=== PATIENT | male | born 1990 | race Caucasian/White ===

== ENCOUNTER 2023-03-11 16:13 | Emergency (ER) | payer OTHER ==
--- NOTE | 2023-03-11 17:00 | ED ---
Psych HPI - General Chief Complaint: Psychiatric Symptoms Stated Complaint: Mental Health, ETOH Time Seen by Provider: 03/11/23 16:20 Source: patient, EMS, RN notes reviewed, old records reviewed Mode of arrival: EMS Limitations: no limitations - History of Present Illness Initial Comments: This is a 32-year-old male to the emergency department for evaluation. Patient states that he had an argument with family prior to arrival patient arrives under petition a family and they do not feel safe in the patient's presence. Patient did have alcohol use today MD Complaint: other (Anger management) Associated Psychiatric Symptoms: homicidal ideation Quality: constant Improves With: none Worsens With: none Context: not taking psychiatric medications, significant life stressor Associated Symptoms: denies other symptoms Treatments Prior to Arrival: placed on mental health hold - Related Data Home Medications Medication Instructions Recorded Confirmed Ibuprofen [Motrin Ib] 200 mg PO Q8H PRN 03/11/23 03/15/23 Melatonin 20 mg PO HS PRN 03/11/23 03/15/23 Naltrexone HCl 50 mg PO DAILY 03/11/23 03/15/23 Propranolol [Inderal] 10 mg PO BID PRN 03/11/23 03/15/23 buPROPion XL [Wellbutrin XL] 300 mg PO DAILY 03/11/23 03/15/23 busPIRone HCL [Buspirone HCl] 10 mg PO TID PRN 03/11/23 03/15/23 Allergies Allergy/AdvReac Type Severity Reaction Status Date / Time No Known Allergies Allergy Verified 03/15/23 21:26 Review of Systems ROS Statement: Those systems with pertinent positive or pertinent negative responses have been documented in the HPI. ROS Other: All systems not noted in ROS Statement are negative. Past Medical History Past Medical History: No Reported History History of Any Multi-Drug Resistant Organisms: None Reported Past Surgical History: Tonsillectomy Past Psychological History: Anxiety, Depression Smoking Status: Current every day smoker Past Alcohol Use History: Abuse Past Drug Use History: Marijuana General Exam Limitations: no limitations General appearance: alert, in no apparent distress Head exam: Present: atraumatic, normocephalic, normal inspection Eye exam: Present: normal appearance, PERRL, EOMI. Absent: scleral icterus, conjunctival injection, periorbital swelling ENT exam: Present: normal exam, mucous membranes moist Neck exam: Present: normal inspection. Absent: tenderness, meningismus, lymphadenopathy Respiratory exam: Present: normal lung sounds bilaterally. Absent: respiratory distress, wheezes, rales, rhonchi, stridor Cardiovascular Exam: Present: regular rate, normal rhythm, normal heart sounds. Absent: systolic murmur, diastolic murmur, rubs, gallop, clicks GI/Abdominal exam: Present: soft, normal bowel sounds. Absent: distended, tenderness, guarding, rebound, rigid Extremities exam: Present: normal inspection, full ROM, normal capillary refill. Absent: tenderness, pedal edema, joint swelling, calf tenderness Back exam: Present: normal inspection Neurological exam: Present: alert, oriented X3, CN II-XII intact Psychiatric exam: Present: normal affect, normal mood Skin exam: Present: warm, dry, intact, normal color. Absent: rash Course Vital Signs 03/11/23 03/11/23 16:14 22:26 Pulse Rate 92 102 H Respiratory 18 19 Rate Blood Pressure 161/108 128/98 O2 Sat by Pulse 98 99 Oximetry - Reevaluation(s) Reevaluation #1: 03/11/23 21:30 Medical record is reviewed Medical Decision Making - Medical Decision Making 32 male seen eval by psychiatry here in the ER, patient can be discharged home Disposition Clinical Impression: Adjustment reaction of adult life, Mood disorder Disposition: HOME SELF-CARE Condition: Fair Is patient prescribed a controlled substance at d/c from ED?: No Referrals: None,Stated [Primary Care Provider] - 1-2 days
[2023-03-11 22:38] VITALS: BP 128/98; PULSE 102; RESP 19
== END 2023-03-11 22:28 | disposition home or self-care (01) ==
LOC: EC 16:13
DX: F39 Unspecified mood [affective] disorder (principal); F43.22 Adjustment disorder with anxiety; F32.A Depression, unspecified; F12.90 Cannabis use, unspecified, uncomplicated; F17.200 Nicotine dependence, unspecified, uncomplicated; Z79.899 Other long term (current) drug therapy
CPT/HCPCS: 82075; 99285

== ENCOUNTER 2023-03-15 15:31 | Inpatient (IN) | payer MEDICAID, OTHER ==
--- NOTE | 2023-03-15 16:39 | ED ---
General Adult HPI - General Chief complaint: Psychiatric Symptoms Stated complaint: Mental Health Time Seen by Provider: 03/15/23 16:12 Source: patient, RN notes reviewed, old records reviewed Mode of arrival: ambulatory Limitations: no limitations - History of Present Illness Initial comments: 32-year-old male for mental health evaluation. Patient had apparently made statements indicating he had 2 visions, where he killed himself and everyone in his family. He is petitioned. He has prior history of bipolar depression. He states he is a daily drinker. No physical complaints. - Related Data Home Medications Medication Instructions Recorded Confirmed Ibuprofen [Motrin Ib] 200 mg PO Q8H PRN 03/11/23 03/11/23 Melatonin 20 mg PO HS PRN 03/11/23 03/11/23 Naltrexone HCl 50 mg PO DAILY 03/11/23 03/11/23 Propranolol [Inderal] 10 mg PO BID PRN 03/11/23 03/11/23 buPROPion XL [Wellbutrin XL] 300 mg PO DAILY 03/11/23 03/11/23 busPIRone HCL [Buspirone HCl] 10 mg PO TID PRN 03/11/23 03/11/23 Allergies Allergy/AdvReac Type Severity Reaction Status Date / Time No Known Allergies Allergy Verified 03/15/23 16:10 Review of Systems ROS Statement: Those systems with pertinent positive or pertinent negative responses have been documented in the HPI. ROS Other: All systems not noted in ROS Statement are negative. Past Medical History Past Medical History: No Reported History, Hypertension History of Any Multi-Drug Resistant Organisms: None Reported Past Surgical History: Tonsillectomy Past Psychological History: Anxiety, Depression Smoking Status: Current every day smoker Past Alcohol Use History: Abuse, Daily Past Drug Use History: Marijuana, Methamphetamine General Exam Limitations: no limitations General appearance: alert, in no apparent distress Head exam: Present: atraumatic, normocephalic Eye exam: Present: normal appearance, PERRL ENT exam: Present: normal exam Neck exam: Present: normal inspection. Absent: tenderness, meningismus Respiratory exam: Present: normal lung sounds bilaterally. Absent: respiratory distress Cardiovascular Exam: Present: regular rate, normal rhythm GI/Abdominal exam: Present: soft. Absent: distended, tenderness Extremities exam: Present: normal inspection Neurological exam: Present: alert, oriented X3. Absent: motor sensory deficit Psychiatric exam: Present: homicidal ideation Skin exam: Present: warm, dry, intact Course Vital Signs 03/15/23 16:05 Temperature 97.9 F Pulse Rate 107 H Respiratory 20 Rate Blood Pressure 158/100 O2 Sat by Pulse 98 Oximetry - Reevaluation(s) Reevaluation #1: 03/15/23 16:37 Clear for EPS Medical Decision Making - Medical Decision Making Was pt. sent in by a medical professional or institution (, PA, ALUMNI COORDINATOR, urgent care, hospital, or fpc...) When possible be specific @ -No Did you speak to anyone other than the patient for history (EMS, parent, family, police, friend...)? What history was obtained from this source @ -No Did you review nursing and triage notes (agree or disagree)? Why? @ -I reviewed and agree with nursing and triage notes Were old charts reviewed (outside hosp., previous admission, EMS record, old EKG, old radiological studies, urgent care reports/EKG's, fpc records)? Report findings @ -No old charts were reviewed Differential Diagnosis (chest pain, altered mental status, abdominal pain women, abdominal pain men, vaginal bleeding, weakness, fever, dyspnea, syncope, headache, dizziness, GI bleed, back pain, seizure, CVA, palpatations, mental health, musculoskeletal)? @ -[Differential Mental Health Depression, anxiety, bipolar, psychosis, schizophrenia, borderline personality, situational depression, adjustment disorder, behavioral disorder, brain tumor, malingering, substance abuse, encephalopathy, medication reaction, dementia, hypothyroidism, degenerative neurologic disorder, lupus.... This is not meant to be all-inclusive list EKG interpreted by me (3pts min.). @ -As above X-rays interpreted by me (1pt min.). @ -None done CT interpreted by me (1pt min.). @ -None done U/S interpreted by me (1pt. min.). @ -None done What testing was considered but not performed or refused? (CT, X-rays, U/S, lab s)? Why? @ -None What meds were considered but not given or refused? Why? @ -None Did you discuss the management of the patient with other professionals (professionals i.e. , PA, ALUMNI COORDINATOR, lab, RT, psych nurse, geriatric social worker, extended insurance clerk, teacher, correctional officer captain, vocational case manager)? Give summary @ -No Was smoking cessation discussed for >3mins.? @ -No Was critical care preformed (if so, how long)? @ -No Were there social determinants of health that impacted care today? How? (Homelessness, low income, unemployed, alcoholism, drug addiction, transportation, low edu. Level, literacy, decrease access to med. care, long term, rehab)? @ -No Was there de-escalation of care discussed even if they declined (Discuss DNR or withdrawal of care, Hospice)? DNR status @ -No What co-morbidities impacted this encounter? (DM, HTN, Smoking, COPD, CAD, Cancer, CVA, ARF, Chemo, Hep., AIDS, mental health diagnosis, sleep apnea, morbid obesity)? @ -None Was patient admitted / discharged? Hospital course, mention meds given and route, prescriptions, significant lab abnormalities, going to OR and other pertinent info. @ Patient evaluated by EPS and will be admitted to this institution for further psychiatric evaluation and treatment. Undiagnosed new problem with uncertain prognosis? @ -No Drug Therapy requiring intensive monitoring for toxicity (Heparin, Nitro, Insulin, Cardizem)? @ -No Were any procedures done? @ -No Diagnosis/symptom? @ -Acute psychosis Acute, or Chronic, or Acute on Chronic? @ -Acute Uncomplicated (without systemic symptoms) or Complicated (systemic symptoms)? @ -default Side effects of treatment? @ -No Exacerbation, Progression, or Severe Exacerbation? @ -No Poses a threat to life or bodily function? How? (Chest pain, [place], [place], pneumonia, PE, COPD, DKA, ARF, appy, cholecystitis, CVA, Diverticulitis, Homicidal, Suicidal, threat to staff... and all critical care pts) @ -No - Lab Data Lab Results 03/15/23 Range/Units 17:29 Urine Opiates Screen Not Detected (NotDetected) Ur Oxycodone Screen Not Detected (NotDetected) Urine Methadone Screen Not Detected (NotDetected) Ur Propoxyphene Screen Not Detected (NotDetected) Ur Barbiturates Screen Not Detected (NotDetected) U Tricyclic Antidepress Not Detected (NotDetected) Ur Phencyclidine Scrn Not Detected (NotDetected) Ur Amphetamines Screen Not Detected (NotDetected) U Methamphetamines Scrn Not Detected (NotDetected) U Benzodiazepines Scrn Detected H (NotDetected) Urine Cocaine Screen Not Detected (NotDetected) U Marijuana (THC) Screen Detected H (NotDetected) Disposition Clinical Impression: Acute psychosis, Suicidal ideation Disposition: ADMITTED IP TO THIS [facility] Condition: Stable Is patient prescribed a controlled substance at d/c from ED?: No Referrals: Parvez Conway MD [Primary Care Provider] - 1-2 days Time of Disposition: 21:06
[2023-03-15 18:26] LABS: Amphetamine Screen,Urine Not Detected (NotDetected); Barbiturate Screen,Urine Not Detected (NotDetected); Benzodiazepines Screen,Urine Detected (NotDetected); Cocaine Screen,Urine Not Detected (NotDetected); Methadone Screen, Urine Not Detected (NotDetected); Opiate Screen,Urine Not Detected (NotDetected); Oxycodone Screen, Urine Not Detected (NotDetected); Phencyclidine Screen,Urine Not Detected (NotDetected); Tricyclic Antidepressant,Urine Not Detected (NotDetected); Urn Cannabinoid Scrn Detected (NotDetected)
[2023-03-15 22:17] LABS: HCT 44.9 % (39.0-53.0); HGB 15.8 gm/dL (13.0-17.5); MCH 31.2 pg (25.0-35.0); MCHC 35.1 g/dL (31.0-37.0); MCV 88.9 fL (80.0-100.0); Mean Platelet Volume 6.8; Platelet Count 226 k/uL (150-450); RBC 5.05 m/uL (4.30-5.90); RDW 12.8 % (11.5-15.5); WBC 10.7 k/uL (3.8-10.6)
[2023-03-15 22:31] LABS: ALT 20 U/L (4-49); African American GFR (CKD) >90 (>60 ml/min/1.73 sqM); Albumin 4.5 g/dL (3.5-5.0); Anion Gap 16 mmol/L; Blood Urea Nitrogen 17 mg/dL (9-20); Calcium 9.3 mg/dL (8.4-10.2); Carbon Dioxide 17 mmol/L (22-30); Chloride 107 mmol/L (98-107); Glucose 87 mg/dL (74-99); Non-African American GFR(CKD) >90 (>60 ml/min/1.73 sqM); Sodium 140 mmol/L (137-145); Total Bilirubin 0.6 mg/dL (0.2-1.3); Total Protein 7.9 g/dL (6.3-8.2)
[2023-03-15 22:35] LABS: AST 29 U/L (17-59); Alkaline Phosphatase 75 U/L (38-126)
[2023-03-15] MEDS ORDERED: MAG HYDROX/AL HYDROX/SIMETH 30 ML CUP PO PRN (23:22)
[2023-03-15] MEDS ORDERED: MAGNESIUM HYDROXIDE 2,400 MG/30 ML CUP PO PRN (23:22)
[2023-03-15] MEDS ORDERED: haloperidoL 5 MG TAB PO PRN (23:22)
[2023-03-15] MEDS ORDERED: HALOPERIDOL LACTATE 5 MG/ML 1 ML VIAL IM PRN (23:22)
[2023-03-15] MEDS: chlordiazePOXIDE 25 MG CAP PO SCH (23:47)
[2023-03-16] MEDS ORDERED: LORazepam 2 MG/ML INJ IM PRN (01:16)
[2023-03-16] MEDS: NICOTINE 14MG/24HR PATCH TRANSDERM SCH (08:24)
[2023-03-16] MEDS: chlordiazePOXIDE 25 MG CAP PO SCH ×3 (08:24→19:53)
[2023-03-16] MEDS: LORazepam 1 MG TAB PO PRN ×2 (08:24→16:12)
[2023-03-16] MEDS: busPIRone HCl 10 MG TAB PO PRN (08:24)
[2023-03-16] MEDS: NALTREXONE HCL 50 MG TAB PO SCH (08:24)
[2023-03-16] MEDS ORDERED: PROPRANOLOL 10 MG TAB PO PRN (09:00)
--- NOTE | 2023-03-16 10:39 | P.HP ---
Psychiatric H&P - . H&P Date: 03/16/23 History & Physical: Allergies Allergy/AdvReac Type Severity Reaction Status Date / Time No Known Allergies Allergy Verified 03/15/23 21:26 Vital Signs Temp 97.7 F 03/16/23 01:54 Pulse 104 H 03/16/23 08:28 Resp 18 03/16/23 08:28 BP 176/113 03/16/23 08:28 Pulse Ox 99 03/16/23 01:54 FiO2 Intake & Output 03/15/23 03/16/23 03/16/23 18:59 06:59 18:59 Weight 113.398 kg 109.429 kg Laboratory Last Values WBC 10.7 k/uL (3.8-10.6) H 03/15/23 21:58 RBC 5.05 m/uL (4.30-5.90) 03/15/23 21:58 Hgb 15.8 gm/dL (13.0-17.5) 03/15/23 21:58 Hct 44.9 % (39.0-53.0) 03/15/23 21:58 MCV 88.9 fL (80.0-100.0) 03/15/23 21:58 MCH 31.2 pg (25.0-35.0) 03/15/23 21:58 MCHC 35.1 g/dL (31.0-37.0) 03/15/23 21:58 RDW 12.8 % (11.5-15.5) 03/15/23 21:58 Plt Count 226 k/uL (150-450) 03/15/23 21:58 MPV 6.8 03/15/23 21:58 Sodium 140 mmol/L (137-145) 03/15/23 21:58 Potassium 4.0 mmol/L (3.5-5.1) 03/15/23 21:58 Chloride 107 mmol/L (98-107) 03/15/23 21:58 Carbon Dioxide 17 mmol/L (22-30) L 03/15/23 21:58 Anion Gap 16 mmol/L 03/15/23 21:58 BUN 17 mg/dL (9-20) 03/15/23 21:58 Creatinine 1.03 mg/dL (0.66-1.25) 03/15/23 21:58 Est GFR (CKD-EPI)AfAm >90 (>60 ml/min/1.73 sqM) 03/15/23 21:58 Est GFR (CKD-EPI)NonAf >90 (>60 ml/min/1.73 sqM) 03/15/23 21:58 Glucose 87 mg/dL (74-99) 03/15/23 21:58 Calcium 9.3 mg/dL (8.4-10.2) 03/15/23 21:58 Total Bilirubin 0.6 mg/dL (0.2-1.3) 03/15/23 21:58 AST 29 U/L (17-59) 03/15/23 21:58 ALT 20 U/L (4-49) 03/15/23 21:58 Alkaline Phosphatase 75 U/L (38-126) 03/15/23 21:58 Total Protein 7.9 g/dL (6.3-8.2) 03/15/23 21:58 Albumin 4.5 g/dL (3.5-5.0) 03/15/23 21:58 Urine Opiates Screen Not Detected (NotDetected) 03/15/23 17:29 Ur Oxycodone Screen Not Detected (NotDetected) 03/15/23 17:29 Urine Methadone Screen Not Detected (NotDetected) 03/15/23 17:29 Ur Propoxyphene Screen Not Detected (NotDetected) 03/15/23 17:29 Ur Barbiturates Screen Not Detected (NotDetected) 03/15/23 17:29 U Tricyclic Antidepress Not Detected (NotDetected) 03/15/23 17:29 Ur Phencyclidine Scrn Not Detected (NotDetected) 03/15/23 17:29 Ur Amphetamines Screen Not Detected (NotDetected) 03/15/23 17:29 U Methamphetamines Scrn Not Detected (NotDetected) 03/15/23 17:29 U Benzodiazepines Scrn Detected (NotDetected) H 03/15/23 17:29 Urine Cocaine Screen Not Detected (NotDetected) 03/15/23 17:29 U Marijuana (THC) Screen Detected (NotDetected) H 03/15/23 17:29 SARS-CoV-2 (PCR) Not Detected (Not Detectd) 03/15/23 21:15 03/16/23 10:15 IDENTIFYING DATA: Patient is a 32 yo male, lives with parents in a house, single, no kids, currently works in a [employer] shop HPI: Patient presented to the hospital yesterday brought in by family. Patient was apparently having visions of killing himself in the family. Patient was petitioned by his mother who stated that "not sleeping for several days. Agitated, pacing, threatening to fight his father. Third ER visit in 6 days. Today he said he was in a trance and he wished for someone to come and kill us all." Patient has a history of bipolar disorder, currently following up at [facility]. He also has a history of alcohol abuse. He had poor eye contact during the interview, was evasive, guarded. Very concrete. He claims that he was "arguing with my parents" and states that he does not remember why they were concerned and brought in the hospital. He claims that "they're probably worried about my attitude". He states that his attitude "flip flops". He states that he is not having any paranoia at this time. States that his sleep is poor appetite is poor he is feeling angry today, denying any depression. Admits to anxiety. States that he drinks several beers a day around a 6 pack of alcohol. He claims that he also smokes marijuana about 3-5 times a day. Denies any other recreational drug use. Urine drug screen is positive for benzodiazepines and THC. Patient denies any suicidal or homicidal ideations intent or plan. At this time patient denies any auditory or visual hallucinations. Patient denies any flight of ideas racing thoughts and increased in goal directed behavior. PAST PSYCHIATRIC HISTORY: Patient states that he has a history of bipolar disorder, anxiety and depression. Patient is currently on Wellbutrin, Inderal, naltrexone melatonin and BuSpar. Claims that he was last psychiatrically hospitalized in July 2022 at [facility]. And that he has a nurse practitioner that he follows up with at [facility]. Patient denies any history of suicide attempts in the past. PMH: As per ER note ALLERGIES: as per EMR CHEMICAL DEPENDENCY HISTORY: as per HPI FAMILY PSYCHIATRIC/SUBSTANCE USE HISTORY: denies SOCIAL HISTORY: Patient was born and raised in [place] also bring CD. Claims that he completed high school and did some college. 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 States that he is single he has no kids. He lives with his parents. He claims that he did go to [facility] about [facility] years ago for a DUI. MENTAL STATUS EXAM: General Appearance: Patient appears to be mildly overweight, balding, stated age is alert, evasive, guarded, uncooperative. Patient appears to have poor hygiene and grooming. Behavior: Patient is seated without any agitated behavior. Uncooperative. Evasive Speech: Patient's speech is monotone and concrete Mood/Affect: Patient reports their mood is angry", affect is congruent and constricted. Suicidality/Homicidality: Patient denies having any homicidal ideation intent or plan. Denies any suicidal ideations intent or plan Perceptions: Patient denies any visual hallucinations and denies any auditory hallucinations Though content/process: Operative content, concrete. Memory and concentration: AOX3, grossly intact for the purposes of this session. Can spell "WORLD" backwards Judgment and insight: poor STRENGTHS/WEAKNESSES: strength is that patient is resilient. Weakness is that patient has poor judgment and is impulsive INTELLECT: average IMPRESSIONS: Bipolar disorder Alcohol use disorder, severe dependence Cannabis use disorder severe Nicotine dependence PLAN: -Patient is admitted under voluntary status to [facility] for stabilization of psychiatric symptoms and safety. Patient has not signed adult voluntary form and medication consent and is placed in patient's chart. A second certification was completed and along with petition will be filed for court. -Medications : Patient will be started on propranolol 20 mg twice a day, naltrexone 50 mg daily for alcohol cravings, BuSpar 3 times a day when necessary for anxiety. Abilify 5 mg daily from mood stabilization, Zoloft 50 mg daily for mood/anxiety. Lamictal 25 mg 3 times a day for alcohol withdrawal, continue to taper -Ativan and Haldol PRN for agitation/aggression -Started thiamine, MVM for etoh use -CIWA protocol with Ativan PRN for ETOH withdrawal -Patient was counselled on substance abuse and desired to cut back on use -Patient was informed of the risks, benefits and side effects of the medication and patient verbally consented to taking the medications. Patient signed med consent form and was placed in chart. -Internal Medicine consult to perform medical evaluation and physical. -NRT - nicotine patch -SW on board for discharge planning. Encourage patient to participate in groups to work on coping skills. Will await deferral and court date. 03/16/23 10:32 03/16/23 10:37
[2023-03-16] MEDS: PROPRANOLOL 20 MG TAB PO SCH ×2 (11:07→19:54)
[2023-03-16] MEDS: ARIPiprazole 5 MG TAB PO SCH (11:07)
[2023-03-16] MEDS: SERTRALINE 50 MG TAB PO SCH (11:07)
[2023-03-16 12:08] LABS: Appearance,Urine Cloudy (Clear); Bilirubin,Urine Negative (Negative); Blood,Urine Negative (Negative); Color,Urine Colorless; Glucose,Urine (UA) Negative (Negative); Ketones,Urine Negative (Negative); Leukocyte Esterase,Urine Negative (Negative); Nitrite,Urine Negative (Negative); Protein,Urine Negative (Negative); Specific Gravity,Urine 1.004 (1.001-1.035); Urobilinogen,Urine <2.0 mg/dL (<2.0); WBC,Urine <1 /hpf (0-5)
[2023-03-16] MEDS: cloNIDine HCL 0.1 MG TAB PO PRN (12:49)
[2023-03-16] MEDS ORDERED: cloNIDine HCL 0.2 MG TAB PO STA (18:02)
--- NOTE | 2023-03-17 02:34 | P.MDCNMH ---
History of Present Illness H&P Date: 03/17/23 Chief Complaint: medical eval 32 year old male alcoholic coming in for mental health evaluation due to startement regarding visions he had where he kills himself and everyone around him. he denies any suicidal and homicidal ideation at this point . he feels little shaky but denies any hallucinations. he denies any fever, chills, cough, sore throat, chest pain , trouble breathing , nausea , vomiting, abd pain , changes in urinary or bowel habits. denies smoking or illicit drugs , admits to daily heavy alcohol review of systems Pertinent positives as noted in HPI. All other systems were reviewed and are negative on exam Constitutional: No acute distress Eyes: Anicteric sclerae, moist conjunctiva, Pupils equal round reactive to light ENMT: NC/AT Oropharynx clear, no erythema, or exudates Neck: Supple, no masses, or JVD No carotid bruits No thyromegaly Lungs: Clear to auscultation Clear to percussion Normal respiratory effort, no accessory muscle use Cardiovascular: Heart regular in rate and rhythm, No murmurs, gallops, or rubs No peripheral edema Abdominal: Soft Nontender, no guarding, rebound or rigidity Abdomen moving with respiration Normoactive bowel sounds Skin: superficial abrasions over his right hand over the knuckles and left foot. Extremities: No digital cyanosis No clubbing Pedal pulses intact and symmetrical Radial pulses intact and symmetrical No calf tenderness Psychiatric: Alert and oriented to person, place and time Neuro Muscles Strength 5/5 in all 4 extremities Sensation to light touch grossly present throughout Cranial nerves II-XII grossly intact Past Medical History Past Medical History: Asthma, Hypertension Additional Past Medical History / Comment(s): Slipped discs L1-L5 History of Any Multi-Drug Resistant Organisms: None Reported Past Surgical History: Tonsillectomy Past Anesthesia/Blood Transfusion Reactions: No Reported Reaction Smoking Status: Current every day smoker - Past Family History Mother History Unknown: Yes Additional Family Medical History / Comment(s): Patient did not want to disclose information on parents Father History Unknown: Yes Additional Family Medical History / Comment(s): Patient did not want to disclose information on parents Medications and Allergies Home Medications Medication Instructions Recorded Confirmed Type Ibuprofen [Motrin Ib] 200 mg PO Q8H PRN 03/11/23 03/15/23 History Melatonin 20 mg PO HS PRN 03/11/23 03/15/23 History Naltrexone HCl 50 mg PO DAILY 03/11/23 03/15/23 History Propranolol [Inderal] 10 mg PO BID PRN 03/11/23 03/15/23 History buPROPion XL [Wellbutrin XL] 300 mg PO DAILY 03/11/23 03/15/23 History busPIRone HCL [Buspirone HCl] 10 mg PO TID PRN 03/11/23 03/15/23 History Allergies Allergy/AdvReac Type Severity Reaction Status Date / Time No Known Allergies Allergy Verified 03/15/23 21:26 Physical Exam Vitals: Vital Signs Pulse Resp BP Pulse Ox 03/16/23 21:09 85 16 130/89 99 03/16/23 20:02 90 16 143/103 99 03/16/23 16:11 76 188/115 03/16/23 12:46 74 155/111 03/16/23 10:49 86 190/111 03/16/23 08:28 104 H 18 176/113 Cranial Nerve Examination - Cranial Nerves Cranial Nerve II- Optic: Intact Cranial Nerve III- Oculomotor: Intact Cranial Nerve IV- Trochlear: Intact Cranial Nerve V- Trigeminal: Intact Cranial Nerve - Abducens: Intact Cranial Nerve VII- Facial: Intact Cranial Nerve VIII- Auditory: Intact Cranial Nerve IX- Glossopharyngeal: Intact Cranial Nerve X- Vagus: Intact Cranial Nerve XI- Accessory: Intact Cranial Nerve XII- Hypoglossal: Intact Results CBC & Chem 7: 03/15/23 21:58 03/15/23 21:58 Assessment and Plan Assessment: alcohol abuse , monitor for alcohol withdrawal Benzo per ciwa hypertension resume propranolol home medication and catapress PRN for elevated blood pressure blood work reviewed unremarkable covid negative urine drug screen , positive for benzo and marijuana thank you for this consultation
[2023-03-17] MEDS: NICOTINE 14MG/24HR PATCH TRANSDERM SCH (08:33)
[2023-03-17] MEDS: chlordiazePOXIDE 25 MG CAP PO SCH (08:34)
[2023-03-17] MEDS: ARIPiprazole 5 MG TAB PO SCH (08:34)
[2023-03-17] MEDS: PROPRANOLOL 20 MG TAB PO SCH (08:35)
[2023-03-17] MEDS: NALTREXONE HCL 50 MG TAB PO SCH (08:35)
[2023-03-17] MEDS: SERTRALINE 50 MG TAB PO SCH (08:35)
[2023-03-17] MEDS: busPIRone HCl 10 MG TAB PO PRN (08:36)
[2023-03-17] MEDS: LORazepam 1 MG TAB PO PRN (08:36)
--- NOTE | 2023-03-17 11:05 | P.PN ---
Progress Note - Text Progress Note Date: 03/17/23 Interval history: [facility] other patients. He claims that he is doing "fine" continues to have a very constricted affect. He states that he did not sleep well last night. Claims that when he smokes weed he is able to sleep better. Continues to have very poor insight and judgment. He was asking about discharge today. He continues to have poor decision making skills. He was not responding to internal stimuli. Claims that his mood is "fine" admits to anxiety today. States that his appetite is fair. Denies any auditory or visual hallucinations. Denies any suicidal or homicidal ideations intent or plan. Not reporting any side effects from medications. MENTAL STATUS EXAM: General Appearance: Patient appears to be mildly overweight, balding, stated age is alert, evasive, guarded, uncooperative. Patient appears to have poor hygiene and grooming. Behavior: Patient is seated without any agitated behavior. Uncooperative. Evasive Speech: Patient's speech is monotone and concrete Mood/Affect: Patient reports their mood is "fine", affect is congruent and constricted, improving. Suicidality/Homicidality: Patient denies having any homicidal ideation intent or plan. Denies any suicidal ideations intent or plan Perceptions: Patient denies any visual hallucinations and denies any auditory hallucinations Though content/process: Fairly concrete. No delusions or paranoia. Memory and concentration: AOX3, grossly intact for the purposes of this session Judgment and insight: poor IMPRESSIONS: Bipolar disorder Alcohol use disorder, severe dependence Cannabis use disorder severe Nicotine dependence PLAN: -Patient is admitted under voluntary status to [facility] for stabilization of psychiatric symptoms and safety. Patient has not signed adult voluntary form and medication consent and is placed in patient's chart. A second certification was completed and along with petition will be filed for court. -Medications : switched propranolol LA 60 mg daily for anxiety/blood pressure, naltrexone 50 mg daily for alcohol cravings, BuSpar 3 times a day when necessary for anxiety. Increase Abilify 7.5 mg daily from mood stabilization, increase Zoloft 100 mg daily for mood/anxiety. decrease Lamictal 20 mg 3 times a day for alcohol withdrawal, continue to taper -Ativan and Haldol PRN for agitation/aggression -thiamine, MVM for etoh use -CIWA protocol with Ativan PRN for ETOH withdrawal -NRT - nicotine patch -SW on board for discharge planning. Encourage patient to participate in groups to work on coping skills. Will await deferral and court date.
[2023-03-17] MEDS: PROPRANOLOL LA 60 MG CAP.SA.24H PO SCH (12:15)
[2023-03-17] MEDS: traZODone HCL 50 MG TAB PO PRN (20:27)
[2023-03-18] MEDS: LORazepam 1 MG TAB PO PRN (01:44)
[2023-03-18] MEDS: busPIRone HCl 10 MG TAB PO PRN ×2 (01:44→21:02)
[2023-03-18] MEDS: IBUPROFEN 600 MG TAB PO PRN (02:41)
[2023-03-18] MEDS ORDERED: ARIPiprazole 5 MG TAB PO SCH (09:00)
[2023-03-18] MEDS: NICOTINE 14MG/24HR PATCH TRANSDERM SCH (09:06)
[2023-03-18] MEDS: SERTRALINE 100 MG TAB PO SCH (09:08)
[2023-03-18] MEDS: NALTREXONE HCL 50 MG TAB PO SCH (09:08)
[2023-03-18] MEDS: PROPRANOLOL LA 60 MG CAP.SA.24H PO SCH (09:09)
--- NOTE | 2023-03-18 11:56 | P.PN ---
Progress Note - Text Progress Note Date: 03/18/23 Interval history: Patient was seen today in the hallway, and agreeable to speak with filing writer in the office. He claims that he is doing "very well", and feels "balanced". patient appears to be fairly constricted and monotone in voice. Claims he does not feel angry, however, feels a little depressed and tired. He states that he did sleep well last night. Continues to have very poor insight and judgment, mildly improving. Patient is attending groups. He was not responding to internal stimuli. States that his appetite is fair. Denies any auditory or visual hallucinations. Denies any suicidal or homicidal ideations intent or plan. Not reporting any side effects from medications. MENTAL STATUS EXAM: General Appearance: Patient appears to be mildly overweight, balding, stated age is alert, evasive, guarded, uncooperative. Patient appears to have imrpoving hygiene and grooming. Behavior: Patient is seated without any agitated behavior. Evasive mildly improving Speech: Patient's speech is monotone and concrete Mood/Affect: Patient reports their mood is "fine", affect is congruent and constricted, improving. Suicidality/Homicidality: Patient denies having any homicidal ideation intent or plan. Denies any suicidal ideations intent or plan Perceptions: Patient denies any visual hallucinations and denies any auditory hallucinations Though content/process: Fairly concrete. No delusions or paranoia. evasive Memory and concentration: AOX3, grossly intact for the purposes of this session Judgment and insight: poor, mildly improving IMPRESSIONS: Bipolar disorder Alcohol use disorder, severe dependence Cannabis use disorder severe Nicotine dependence PLAN: -Patient is admitted under voluntary status to [facility] for stabilization of psychiatric symptoms and safety. Patient has not signed adult voluntary form and medication consent and is placed in patient's chart. -Medications : increase propranolol LA 80 mg daily for anxiety/blood pressure, naltrexone 50 mg daily for alcohol cravings, BuSpar 3 times a day when necessary for anxiety. increase Abilify 10 mg daily from mood stabilization, Zoloft 100 mg daily for mood/anxiety. Librium 10 mg 4 times a day for alcohol withdrawal, continue to taper -Ativan and Haldol PRN for agitation/aggression -thiamine, MVM for etoh use -CIWA protocol with Ativan PRN for ETOH withdrawal -NRT - nicotine patch -SW on board for discharge planning. Encourage patient to participate in groups to work on coping skills. Will await deferral and court date.
[2023-03-18] MEDS: traZODone HCL 50 MG TAB PO PRN (21:03)
[2023-03-19] MEDS: IBUPROFEN 600 MG TAB PO PRN (03:44)
[2023-03-19] MEDS: busPIRone HCl 10 MG TAB PO PRN (03:44)
[2023-03-19] MEDS: NICOTINE 14MG/24HR PATCH TRANSDERM SCH (08:07)
[2023-03-19] MEDS: PROPRANOLOL LA 80 MG CAP.SA.24H PO SCH (08:08)
[2023-03-19] MEDS: SERTRALINE 100 MG TAB PO SCH (08:08)
[2023-03-19] MEDS: NALTREXONE HCL 50 MG TAB PO SCH (08:08)
[2023-03-19] MEDS ORDERED: ARIPiprazole 10 MG TAB PO SCH (09:00)
[2023-03-19] MEDS ORDERED: ARIPiprazole 5 MG TAB PO ONE (12:11)
--- NOTE | 2023-03-19 12:19 | P.PN ---
Progress Note - Text Progress Note Date: 03/19/23 Interval history: Patient was seen today in the hallway, and agreeable to speak with bond underwriter in the office. He claims that he is doing much better, and feels hopeful. patient appears to be fairly constricted and monotone in voice. He states that he did not sleep well last night. [place] restless. Continues to have very poor insight and judgment, improving. Patient is attending groups. States that his appetite is fair. Denies any auditory or visual hallucinations. Denies any suicidal or homicidal ideations intent or plan. States his medication is making him drowsy and he felt nauseous last night, but it's improving today. Wire Coating Machine Operator is coming 03/21 for deferral. MENTAL STATUS EXAM: General Appearance: Patient appears to be mildly overweight, balding, stated age is alert, evasive, guarded, uncooperative. Patient appears to have imrpoving hygiene and grooming. Behavior: Patient is seated without any agitated behavior. Evasive mildly improving Speech: Patient's speech is monotone and concrete Mood/Affect: Patient reports their mood is "fine", affect is incongruent and constricted, improving. Suicidality/Homicidality: Patient denies having any homicidal ideation intent or plan. Denies any suicidal ideations intent or plan Perceptions: Patient denies any visual hallucinations and denies any auditory hallucinations Though content/process: Fairly concrete. No delusions or paranoia. evasive Memory and concentration: AOX3, grossly intact for the purposes of this session Judgment and insight: poor, mildly improving IMPRESSIONS: Bipolar disorder Alcohol use disorder, severe dependence Cannabis use disorder severe Nicotine dependence PLAN: -Patient is admitted under voluntary status to [facility] for stabilization of psychiatric symptoms and safety. Patient has not signed adult voluntary form and medication consent and is placed in patient's chart. -Medications : propranolol LA 80 mg daily for anxiety/blood pressure, naltrexone 50 mg daily for alcohol cravings, BuSpar 3 times a day when necessary for anxiety. Increase Abilify 15 mg daily from mood stabilization, Zoloft 100 mg daily for mood/anxiety. Librium 10 mg 3 times a day for alcohol withdrawal, continue to taper Increase trazadone to 100mg qhs scheduled for insomnia. -Ativan and Haldol PRN for agitation/aggression -thiamine, MVM for etoh use -CIWA protocol with Ativan PRN for ETOH withdrawal -NRT - nicotine patch -SW on board for discharge planning. Encourage patient to participate in groups to work on coping skills. Deferral is March 21.
[2023-03-19] MEDS ORDERED: traZODone HCL 100 MG TAB PO SCH (21:00)
[2023-03-19] MEDS ORDERED: bisacodyL 5 MG TABLET.DR PO STA (21:19)
[2023-03-19] MEDS: LORazepam 1 MG TAB PO PRN (22:58)
[2023-03-20] MEDS: SERTRALINE 100 MG TAB PO SCH (08:32)
[2023-03-20] MEDS: PROPRANOLOL LA 80 MG CAP.SA.24H PO SCH (08:33)
[2023-03-20] MEDS: NICOTINE 14MG/24HR PATCH TRANSDERM SCH (08:33)
[2023-03-20] MEDS: NALTREXONE HCL 50 MG TAB PO SCH (08:33)
[2023-03-20] MEDS ORDERED: ARIPiprazole 15 MG TAB PO SCH (09:00)
[2023-03-20] MEDS: ZIPRASIDONE 20 MG CAP PO SCH ×2 (10:53→20:36)
--- NOTE | 2023-03-20 11:19 | P.PN ---
Progress Note - Text Progress Note Date: 03/20/23 Interval history: Patient was seen today in group, and agreeable to speak with literary writer in the off ice. He claims that he is doing much better, and feels hopeful. patient appears to be fairly constricted and monotone in voice. Patient appears to be religiously preoccupied today. States he is "being led to do everything" That God is sending him messages, states that it is not an AH, it's "just a feeling" He states that he did not sleep well last night. [place] restless.States his sleep is disrupted, with several wakes during the night. Continues to have very poor insight and judgment. Patient is attending groups. States that his appetite is fair. Denies any auditory or visual hallucinations. Denies any suicidal ideations, states that he is having homicidal ideations to "anyone who irritates him", including his parents, and anyone who angers him. States that it only takes a second to "resort to violence." States his medication is making him drowsy and he felt nauseous last night. Brick Siding Applicator is coming 03/21 for deferral. MENTAL STATUS EXAM: General Appearance: Patient appears to be mildly overweight, balding, stated age is alert, evasive, guarded, more cooperative. mildly improving. Patient appears to have improving hygiene and grooming. Behavior: Patient is seated without any agitated behavior. Evasive Religiously preoccupied Speech: Patient's speech is monotone and concrete Mood/Affect: Patient reports their mood is "fine", affect is incongruent and constricted, mildly improving. Suicidality/Homicidality: Patient denies having any homicidal ideation intent or plan. Denies any suicidal ideations intent or plan Perceptions: Patient denies any visual hallucinations and denies any auditory hallucinations Though content/process: Fairly concrete. No delusions or paranoia. evasive Memory and concentration: AOX3, grossly intact for the purposes of this session Judgment and insight: poor, mildly improving IMPRESSIONS: Bipolar disorder Alcohol use disorder, severe dependence Cannabis use disorder severe Nicotine dependence PLAN: -Patient is admitted under voluntary status to [facility] for stabilization of psychiatric symptoms and safety. Patient has not signed adult voluntary form and medication consent and is placed in patient's chart. Order EKG -Medications : add Geodon 20 bid for psychosis propranolol LA 80 mg daily for anxiety/blood pressure, naltrexone 50 mg daily for alcohol cravings, BuSpar 3 times a day when necessary for anxiety. discontinue Abilify. Zoloft 100 mg daily for mood/anxiety. decrease Librium 10 mg 2 times a day for alcohol withdrawal, discontinue in am. increase trazadone to 150mg qhs scheduled for insomnia. -Ativan and Haldol PRN for agitation/aggression -thiamine, MVM for etoh use -CIWA protocol discontinued -NRT - nicotine patch - on board for discharge planning. Encourage patient to participate in groups to work on coping skills. Deferral is March 21.
[2023-03-20] MEDS: traZODone HCL 50 MG TAB PO SCH (20:36)
[2023-03-21] MEDS: NICOTINE 14MG/24HR PATCH TRANSDERM SCH (08:45)
[2023-03-21] MEDS: ZIPRASIDONE 20 MG CAP PO SCH ×2 (08:46→22:05)
[2023-03-21] MEDS: SERTRALINE 100 MG TAB PO SCH (08:46)
[2023-03-21] MEDS: NALTREXONE HCL 50 MG TAB PO SCH (08:46)
[2023-03-21] MEDS: PROPRANOLOL LA 80 MG CAP.SA.24H PO SCH (08:46)
--- NOTE | 2023-03-21 11:06 | P.PN ---
Progress Note - Text Progress Note Date: 03/21/23 Interval history: Patient was seen today waiting to go to group, and agreeable to speak with jose majano in the office. He claims that he is feeling good. Patient states he has a good mood, and has very little anxiety. States he felt his mind was clearing up a little bit last night. Patient appears to be fairly constricted and monotone in voice. he appears to be less delusional and less paranoid today. mildly improving affect, Patient said he slept well last night. Continues to have very poor insight and judgment, mildly improving. Patient is attending groups. States that his appetite is good. Denies any auditory or visual hallucinations. Denies any suicidal ideations, denies homicidal ideations. Background Check Coordinator is coming today for deferral. MENTAL STATUS EXAM: General Appearance: Patient appears to be mildly overweight, balding, stated age is alert, evasive, guarded, more cooperative. mildly improving. Patient appears to have improving hygiene and grooming. Behavior: Patient is seated without any agitated behavior. Evasive, improving Speech: Patient's speech is monotone and concrete, soft spoken Mood/Affect: Patient reports their mood is "fine", affect is incongruent and constricted, mildly improving. Suicidality/Homicidality: Patient denies having any homicidal ideation intent or plan. Denies any suicidal ideations intent or plan Perceptions: Patient denies any visual hallucinations and denies any auditory hallucinations Though content/process: Fairly concrete. No delusions or paranoia. evasive Memory and concentration: AOX3, grossly intact for the purposes of this session Judgment and insight: poor, mildly improving IMPRESSIONS: Bipolar disorder Alcohol use disorder, severe dependence Cannabis use disorder severe Nicotine dependence PLAN: -Patient is admitted under voluntary status to [facility] for stabilization of psychiatric symptoms and safety. Patient has not signed adult voluntary form and medication consent and is placed in patient's chart. -Medications : continue Geodon 20 bid for psychosis propranolol LA 80 mg daily for anxiety/blood pressure, naltrexone 50 mg daily for alcohol cravings, BuSpar 3 times a day when necessary for anxiety. Zoloft 100 mg daily for mood/anxiety. trazadone to 150mg qhs scheduled for insomnia. -ekg reviewed. -Ativan and Haldol PRN for agitation/aggression -NRT - nicotine patch -SW on board for discharge planning. Encourage patient to participate in groups to work on coping skills. Deferral is today. likely discharge early next week. Currently awaiting intake date at for rehab.
[2023-03-21] MEDS: traZODone HCL 50 MG TAB PO SCH (22:04)
[2023-03-22] MEDS: SERTRALINE 100 MG TAB PO SCH (08:56)
[2023-03-22] MEDS: ZIPRASIDONE 20 MG CAP PO SCH ×2 (08:56→21:47)
[2023-03-22] MEDS: PROPRANOLOL LA 80 MG CAP.SA.24H PO SCH (08:56)
[2023-03-22] MEDS: NALTREXONE HCL 50 MG TAB PO SCH (08:56)
[2023-03-22] MEDS: NICOTINE 14MG/24HR PATCH TRANSDERM SCH (08:56)
--- NOTE | 2023-03-22 11:01 | P.PN ---
Progress Note - Text Progress Note Date: 03/22/23 Interval history: Patient was seen today in the hallway, and agreeable to speak with mortgage underwriter in the office. He claims that he is feeling pretty good. Patient states he has a good mood, and that his anxiety is improving. States he feels the medication is starting to work. Patient appears to be fairly constricted and monotone in voice, however this is improving. Patient said he slept well last night. Patient is attending groups. States that his appetite is good. Spoke with patient about attending rehab at d/c, and he has called to get screened for this and currently awaiting his intake date at . Explained to him about the intake process, and will follow up with social work for this. Awaiting approval. Denies any auditory or visual hallucinations. Denies any suicidal ideations, denies homicidal ideations. States he's "cool as a cucumber" MENTAL STATUS EXAM: General Appearance: Patient appears to be mildly overweight, balding, stated age is alert, more cooperative. mildly improving. Patient appears to have improving hygiene and grooming. Behavior: Patient is seated without any agitated behavior, improving Speech: Patient's speech is monotone and concrete, soft spoken, improving Mood/Affect: Patient reports their mood is "fine", affect is incongruent and constricted, mildly improving Suicidality/Homicidality: Patient denies having any homicidal ideation intent or plan. Denies any suicidal ideations intent or plan Perceptions: Patient denies any visual hallucinations and denies any auditory hallucinations Though content/process: Fairly concrete, improving. No delusions or paranoia. more goal oriented. Memory and concentration: AOX3, grossly intact for the purposes of this session Judgment and insight: improving IMPRESSIONS: Bipolar disorder Alcohol use disorder, severe dependence Cannabis use disorder severe Nicotine dependence PLAN: -Patient is admitted under voluntary status to [facility]HU for stabilization of psychiatric symptoms and safety. Patient has not signed adult voluntary form and medication consent and is placed in patient's chart. -Medications : Geodon 20 bid for psychosis, propranolol LA 80 mg daily for anxiety/blood pressure, naltrexone 50 mg daily for alcohol cravings, BuSpar 3 times a day when necessary for anxiety. Zoloft 100 mg daily for mood/anxiety, trazadone 150mg qhs scheduled for insomnia -Ativan and Haldol PRN for agitation/aggression -NRT - nicotine patch -SW on board for discharge planning. Encourage patient to participate in groups to work on coping skills. Patient deferred with his consumer attorney March 21. likely discharge saturday. Currently awaiting intake date at for rehab.
[2023-03-22] MEDS: traZODone HCL 50 MG TAB PO SCH (21:47)
[2023-03-23] MEDS: NICOTINE 14MG/24HR PATCH TRANSDERM SCH (09:00)
[2023-03-23] MEDS: ZIPRASIDONE 20 MG CAP PO SCH ×2 (09:01→20:52)
[2023-03-23] MEDS: NALTREXONE HCL 50 MG TAB PO SCH (09:01)
[2023-03-23] MEDS: PROPRANOLOL LA 80 MG CAP.SA.24H PO SCH (09:01)
[2023-03-23] MEDS: SERTRALINE 100 MG TAB PO SCH (09:01)
--- NOTE | 2023-03-23 13:46 | P.PN ---
Progress Note - Text Progress Note Date: 03/23/23 Interval history: Patient was seen today in the hallway, and agreeable to speak with chart writer in the office. He claims that his mood is "average". He states that he is doing much better since hospitalization and plans to be compliant with the medications. He denies any alcohol withdrawal symptoms but endorses having cravings for alcohol. He says that work was a trigger for drinking. Patient appears to be fairly constricted and monotone in voice, with delayed responses. Patient said he slept well last night. He states that he is used to sleeping much less so this has been very relaxing. He requested trazodone to be lowered. He reports good energy during the daytime. States that his appetite is good. Denies any auditory or visual hallucinations. Denies any suicidal ideations, denies homicidal ideations. Patient has been compliant with his medications and denies all side effects. MENTAL STATUS EXAM: General Appearance: Patient appears to be mildly overweight, balding, stated age is alert, more cooperative. mildly improving. Patient appears to have improving hygiene and grooming. Behavior: Patient is seated without any agitated behavior, improving Speech: Patient's speech is monotone and concrete, soft spoken, slow delayed responses Mood/Affect: Patient reports their mood is "average", affect is incongruent and constricted, mildly improving Suicidality/Homicidality: Patient denies having any homicidal ideation intent or plan. Denies any suicidal ideation intent or plan Perceptions: Patient denies any visual hallucinations and denies any auditory hallucinations Though content/process: Fairly concrete, improving. No delusions or paranoia. more goal oriented. Memory and concentration: AOX3, grossly intact for the purposes of this session Judgment and insight: improving IMPRESSIONS: Bipolar disorder Alcohol use disorder, severe dependence Cannabis use disorder severe Nicotine dependence PLAN: -Patient is admitted under voluntary status to MHU for stabilization of psychiatric symptoms and safety. Patient has not signed adult voluntary form and medication consent and is placed in patient's chart. -Medications : Geodon 20 bid with meals for psychosis, propranolol LA 80 mg daily for anxiety/blood pressure, naltrexone 50 mg daily for alcohol cravings, B uSpar 3 times a day when necessary for anxiety. Zoloft 100 mg daily for mood/anxiety, decrease trazadone to 100mg qhs scheduled for insomnia -Ativan and Haldol PRN for agitation/aggression -NRT - nicotine patch - on board for discharge planning. Encourage patient to participate in groups to work on coping skills. Patient deferred with his flooring mechanic March 21. likely discharge saturday. Currently awaiting intake date at for rehab.
[2023-03-23] MEDS: traZODone HCL 100 MG TAB PO SCH (20:52)
[2023-03-24] MEDS: NALTREXONE HCL 50 MG TAB PO SCH (08:10)
[2023-03-24] MEDS: ZIPRASIDONE 20 MG CAP PO SCH ×2 (08:10→20:46)
[2023-03-24] MEDS: PROPRANOLOL LA 80 MG CAP.SA.24H PO SCH (08:10)
[2023-03-24] MEDS: SERTRALINE 100 MG TAB PO SCH (08:10)
[2023-03-24] MEDS: NICOTINE 14MG/24HR PATCH TRANSDERM SCH (08:11)
--- NOTE | 2023-03-24 13:33 | P.PN ---
Progress Note - Text Progress Note Date: 03/24/23 Interval history: Patient was seen today in the TV room, and agreeable to speak with greeting card writer. He claims that his mood is "good". He states that he is doing much better since hospitalization. However, he says that last night, he felt slightly more agitated and had a brief instance of suicidal ideation. He would not elaborate on it further and said that it was a passing thought but that it did not linger. He says he is doing much better today and that he slept well last night. He reports eating well and endorses fair appetite. He reports having good energy and was working on a puzzle this morning. Patient appears to be fairly constricted but his voice is less monotone and responses were not as slowed today. Denies any auditory or visual hallucinations. Denies any suicidal ideation, denies homicidal ideation. Patient has been compliant with his medications and denies all side effects. No EPS noted MENTAL STATUS EXAM: General Appearance: Patient appears to be mildly overweight, balding, stated age is alert, more cooperative. mildly improving. Patient appears to have improving hygiene and grooming. Behavior: Patient is seated without any agitated behavior, improving Speech: Patient's speech is less monotone, soft spoken Mood/Affect: Patient reports their mood is "average", affect is incongruent and constricted, mildly improving Suicidality/Homicidality: Patient denies having any homicidal ideation intent or plan. Denies any suicidal ideation intent or plan Perceptions: Patient denies any visual hallucinations and denies any auditory hallucinations Though content/process: Fairly concrete, improving. No delusions or paranoia. more goal oriented. Memory and concentration: AOX3, grossly intact for the purposes of this session Judgment and insight: improving IMPRESSIONS: Bipolar disorder Alcohol use disorder, severe dependence Cannabis use disorder severe Nicotine dependence PLAN: -Patient is admitted under voluntary status to [facility] for stabilization of psychiatric symptoms and safety. Patient has not signed adult voluntary form and medication consent and is placed in patient's chart. -Medications : Geodon 20 bid with meals for psychosis, propranolol LA 80 mg daily for anxiety/blood pressure, naltrexone 50 mg daily for alcohol cravings, BuSpar 3 times a day when necessary for anxiety. Zoloft 100 mg daily for mood/anxiety, trazadone 100mg qhs scheduled for insomnia -Ativan and Haldol PRN for agitation/aggression -NRT - nicotine patch - on board for discharge planning. Encourage patient to participate in groups to work on coping skills. Patient deferred with his associate attorney March 21. likely discharge saturday. Currently awaiting intake date at for rehab.
[2023-03-24] MEDS: traZODone HCL 100 MG TAB PO SCH (22:00)
[2023-03-25] MEDS: SERTRALINE 100 MG TAB PO SCH (08:39)
[2023-03-25] MEDS: ZIPRASIDONE 20 MG CAP PO SCH (08:39)
[2023-03-25] MEDS: NICOTINE 14MG/24HR PATCH TRANSDERM SCH (08:39)
[2023-03-25] MEDS: NALTREXONE HCL 50 MG TAB PO SCH (08:39)
[2023-03-25] MEDS: PROPRANOLOL LA 80 MG CAP.SA.24H PO SCH (08:39)
[2023-03-25] MEDS ORDERED: SERTRALINE 50 MG TAB PO STA (09:35)
--- NOTE | 2023-03-25 09:47 | P.PN ---
Progress Note - Text Progress Note Date: 03/25/23 Interval history: Patient was seen today in the hallway, and agreeable to speak with typewriter mechanic in the office. He claims that he is feeling pretty good. Patient states he was having a rough day Saturday, and for a split second, had SI, states he would not act upon these feelings. States he feels the medication is working. Patient is monotone in voice, however this is improving. Patient claims he is still having intrusive thoughts of hurting people, states that he would rather "fight than work it out" when he's angry. Claims that they are only feelings, and he would not act on these intrusive thoughts. Still awaiting placement with [facility]. Patient said he slept well last night. Patient is attending groups. States that his appetite is good. Spoke with patient about attending rehab at d/c. Awaiting approval. Denies any auditory or visual hallucinations. Denies any suicidal ideations, denies homicidal ideations. MENTAL STATUS EXAM: General Appearance: Patient appears to be mildly overweight, balding, stated age is alert, more cooperative. mildly improving. Patient appears to have improving hygiene and grooming. Behavior: Patient is seated without any agitated behavior, improving Speech: Patient's speech is monotone and concrete, soft spoken, improving Mood/Affect: Patient reports their mood is "anxious", affect is incongruent and constricted, mildly improving Suicidality/Homicidality: Patient denies having any homicidal ideation intent or plan. Denies any suicidal ideations intent or plan Perceptions: Patient denies any visual hallucinations and denies any auditory hallucinations Though content/process: Fairly concrete, improving. No delusions or paranoia. more goal oriented. Memory and concentration: AOX3, grossly intact for the purposes of this session Judgment and insight: improving IMPRESSIONS: Bipolar disorder Alcohol use disorder, severe dependence Cannabis use disorder severe Nicotine dependence PLAN: -Patient is admitted under voluntary status to [facility] for stabilization of psychiatric symptoms and safety. Patient has not signed adult voluntary form and medication consent and is placed in patient's chart. -Medications : Increase Geodon 40 qhs Geodon 20mg qam for psychosis, propranolol LA 80 mg daily for anxiety/blood pressure, naltrexone 50 mg daily for alcohol cravings, BuSpar 3 times a day when necessary for anxiety. increase Zoloft 150 mg daily for mood/anxiety, increase trazadone 150mg qhs scheduled for insomnia -Ativan and Haldol PRN for agitation/aggression -NRT - nicotine patch - on board for discharge planning. Encourage patient to participate in groups to work on coping skills. Patient deferred with his litigation attorney associate March 21. likely discharge possible saturday-saturday if patient continues to improve. Currently awaiting intake date at for rehab.
[2023-03-25] MEDS: ACETAMINOPHEN TAB 325 MG TAB PO PRN (20:02)
[2023-03-25] MEDS ORDERED: ZIPRASIDONE 40 MG CAP PO SCH (21:00)
[2023-03-25] MEDS: traZODone HCL 50 MG TAB PO SCH (22:10)
[2023-03-26] MEDS ORDERED: ZIPRASIDONE 20 MG CAP PO SCH (09:00)
[2023-03-26] MEDS: NALTREXONE HCL 50 MG TAB PO SCH (09:01)
[2023-03-26] MEDS: NICOTINE 14MG/24HR PATCH TRANSDERM SCH (09:02)
[2023-03-26] MEDS: SERTRALINE 50 MG TAB PO SCH (09:02)
[2023-03-26] MEDS: PROPRANOLOL LA 80 MG CAP.SA.24H PO SCH (09:02)
--- NOTE | 2023-03-26 10:32 | P.PN ---
Progress Note - Text Progress Note Date: 03/26/23 Interval history: Patient was seen today in group, and agreeable to speak with flex o writer operator in the off ice. He claims that he is feeling "very well". Patient states he's a little anxious stilll but improving. Patient is still soft spoken, however, he's less monotone today, and is more expressive. States he slept well last night. Intrusive thoughts of hurting people is no longer there today and appears more calmer. States he enjoys going to groups, and enjoys the peer support. Still awaiting placement with [facility]. Patient states that he still wants to drink, and really thinks rehab is his best option. Spoke with patient about adding campral 333mg to help with his alcohol cravings, patient agreeable to take it. Patient concerned with living situation after discharge, because of the strain on the relationship with his parents. States that his appetite is good. Spoke with patient about attending rehab at d/c. Awaiting approval. Denies any auditory or visual hallucinations. Denies any suicidal ideations, denies homicidal ideations. MENTAL STATUS EXAM: General Appearance: Patient appears to be mildly overweight, balding, stated age is alert, more cooperative. mildly improving. Patient appears to have improving hygiene and grooming. Behavior: Patient is seated without any agitated behavior, improving Speech: Patient's speech is monotone and concrete, soft spoken, improving Mood/Affect: Patient reports their mood is "very well", affect is incongruent and constricted,improving Suicidality/Homicidality: Patient denies having any homicidal ideation intent or plan. Denies any suicidal ideations intent or plan Perceptions: Patient denies any visual hallucinations and denies any auditory hallucinations Though content/process: Fairly concrete, improving. No delusions or paranoia. more goal oriented. Memory and concentration: AOX3, grossly intact for the purposes of this session Judgment and insight: improving IMPRESSIONS: Bipolar disorder Alcohol use disorder, severe dependence Cannabis use disorder severe Nicotine dependence PLAN: -Patient is admitted under voluntary status to [facility] for stabilization of psychiatric symptoms and safety. Patient has not signed adult voluntary form and medication consent and is placed in patient's chart. -Medications : increase Geodon 40md bid for psychosis, propranolol LA 80 mg daily for anxiety/blood pressure, naltrexone 50 mg daily for alcohol cravings, BuSpar 3 times a day when necessary for anxiety. Zoloft 150 mg daily for mood/anxiety, trazadone 150mg qhs scheduled for insomnia, add campral 333mg TID for alcohol cravings -Ativan and Haldol PRN for agitation/aggression -NRT - nicotine patch - on board for discharge planning. Encourage patient to participate in groups to work on coping skills. Patient deferred with his hydraulic elevator constructor March 21. likely discharge possible saturday/ if patient continues to improve. Currently awaiting intake date at for rehab.
[2023-03-26] MEDS: ACAMPROSATE CALCIUM 333 MG TABLET.DR PO SCH ×3 (11:13→22:01)
[2023-03-26] MEDS: ZIPRASIDONE 40 MG CAP PO SCH (22:01)
[2023-03-26] MEDS: traZODone HCL 50 MG TAB PO SCH (22:01)
[2023-03-27] MEDS: SERTRALINE 50 MG TAB PO SCH (09:02)
[2023-03-27] MEDS: PROPRANOLOL LA 80 MG CAP.SA.24H PO SCH (09:03)
[2023-03-27] MEDS: ACAMPROSATE CALCIUM 333 MG TABLET.DR PO SCH (09:03)
[2023-03-27] MEDS: NALTREXONE HCL 50 MG TAB PO SCH (09:03)
[2023-03-27] MEDS: ZIPRASIDONE 40 MG CAP PO SCH ×2 (09:03→22:20)
[2023-03-27 09:31] VITALS: BMI 32.5
--- NOTE | 2023-03-27 10:12 | P.PN ---
Progress Note - Text Progress Note Date: 03/27/23 Interval history: Patient was seen today in the hallway, and agreeable to speak with commercial underwriter in the office. He claims that things are going "very well". Patient states the campral was making him feel very shaky, so we will discontinue this medication. Counseled patient on other options to crave alcohol cravings. Patient refusing other options at this time. Patient is still soft spoken, however, he's less monotone, and is more expressive. States he slept great last night. he appears more calmer. States he enjoys going to groups, and enjoys the peer support. interacting more with others. Still awaiting placement with [facility] and continues to be motivated for his sobriety. Patient's clinical packet sent to [facility] yesterday. States that his appetite is good. Spoke with patient about attending rehab at d/c. Patient agreeable with this plan. Awaiting approval. Denies any auditory or visual hallucinations. Denies any suicidal ideations, denies homicidal ideations. MENTAL STATUS EXAM: General Appearance: Patient appears to be mildly overweight, balding, stated age is alert, more cooperative. mildly improving. Patient appears to have improving hygiene and grooming. Behavior: Patient is seated without any agitated behavior, improving. cooperative. Speech: Patient's speech is monotone and concrete, improving Mood/Affect: Patient reports their mood is "good", affect is congruent and constricted, improving Suicidality/Homicidality: Patient denies having any homicidal ideation intent or plan. Denies any suicidal ideations intent or plan Perceptions: Patient denies any visual hallucinations and denies any auditory hallucinations Though content/process: concrete, improving improving. No delusions or paranoia. more goal oriented and future oriented Memory and concentration: AOX3, grossly intact for the purposes of this session Judgment and insight: improving IMPRESSIONS: Bipolar disorder Alcohol use disorder, severe dependence Cannabis use disorder severe Nicotine dependence PLAN: -Patient is admitted under voluntary status to [facility] for stabilization of psyc hiatric symptoms and safety. Patient has not signed adult voluntary form and medication consent and is placed in patient's chart. Patient is psychiatrically stable, but due to increased chance of relapse if discharged back home, will await bed at [facility] before discharge. -Medications : Geodon 40md bid for psychosis, propranolol LA 80 mg daily for anxiety/blood pressure, naltrexone 50 mg daily for alcohol cravings, BuSpar 3 times a day when necessary for anxiety. Zoloft 150 mg daily for mood/anxiety, trazadone 150mg qhs scheduled for insomnia, discontinue campral -Ativan and Haldol PRN for agitation/aggression -NRT - nicotine patch - on board for discharge planning. Encourage patient to participate in groups to work on coping skills. Patient deferred with his title attorney March 21. discharge directly to once he has a bed available for rehab.
[2023-03-27] MEDS: traZODone HCL 50 MG TAB PO SCH (22:20)
[2023-03-28] MEDS: NALTREXONE HCL 50 MG TAB PO SCH (08:34)
[2023-03-28] MEDS: SERTRALINE 50 MG TAB PO SCH (08:34)
[2023-03-28] MEDS: ZIPRASIDONE 40 MG CAP PO SCH ×2 (08:34→20:46)
[2023-03-28] MEDS: PROPRANOLOL LA 80 MG CAP.SA.24H PO SCH (08:34)
--- NOTE | 2023-03-28 09:48 | P.PN ---
Progress Note - Text Progress Note Date: 03/28/23 Interval history: Patient was seen today in the hallway, and agreeable to speak with fiction and nonfiction prose writer in the office. He claims that he is doing well. Patient is still soft spoken, however, he's less monotone, and is more expressive, and has good eye contact. States he is getting better sleep, and he appears calm. States his meds are making him feel more stable, and that his thoughts are more clear. States he enjoys going to groups. Patient states his mood and depression is better, continues to state that he is still having anxiety. Added visteral for this, patient agreeable to take med, prn. Patient is interacting more with others. Patient states he was upset last night because he had no visitors, however, he spoke with his mother on the phone, and lets her know that he is ok. Still awaiting placement with rehab facility, and continues to be motivated for his sobriety. Patient's clinical packet sent to [facility], and [facility]. States that his appetite is good. Spoke with patient about attending rehab at d/c. Patient agreeable with this plan. Awaiting approval. Denies any auditory or visual hallucinations. Denies any suicidal ideations, denies homicidal ideations. MENTAL STATUS EXAM: General Appearance: Patient appears to be mildly overweight, balding, stated age is alert, more cooperative. improving. Patient appears to have improved hygiene and grooming. Behavior: Patient is seated without any agitated behavior, improving. cooperative. Speech: Patient's speech is fluent and nonpressured. Mood/Affect: Patient reports their mood is "well", affect is congruent and constricted, improving Suicidality/Homicidality: Patient denies having any homicidal ideation intent or plan. Denies any suicidal ideations intent or plan Perceptions: Patient denies any visual hallucinations and denies any auditory hallucinations Though content/process: concrete, improving improving. No delusions or paranoia. more goal oriented and future oriented Memory and concentration: AOX3, grossly intact for the purposes of this session Judgment and insight: improving IMPRESSIONS: Bipolar disorder Alcohol use disorder, severe dependence Cannabis use disorder severe Nicotine dependence PLAN: -Patient is admitted under voluntary status to MHU for stabilization of psychiatric symptoms and safety. Patient has not signed adult voluntary form and medication consent and is placed in patient's chart. Patient is psychiatrically stable, but due to increased chance of relapse if discharged back home, will await bed at rehab facility before discharge. -Medications : Geodon 40md bid for psychosis, propranolol LA 80 mg daily for anxiety/blood pressure, naltrexone 50 mg daily for alcohol cravings, BuSpar 3 times a day when necessary for anxiety. Increase Zoloft 200 mg daily for mood/anxiety, trazadone 150mg qhs scheduled for insomnia add Visteral 25mg prn [id number] for anxiety -Ativan and Haldol PRN for agitation/aggression -NRT - nicotine patch -SW on board for discharge planning. Encourage patient to participate in groups to work on coping skills. Patient deferred with his house director March 21. [facility] is not available at this time. discharge directly to rehab once bed is available due to increased chance of relapse.
[2023-03-28] MEDS: traZODone HCL 50 MG TAB PO SCH ×2 (20:46→22:45)
[2023-03-29] MEDS: NALTREXONE HCL 50 MG TAB PO SCH (08:49)
[2023-03-29] MEDS: ZIPRASIDONE 40 MG CAP PO SCH ×2 (08:50→21:19)
[2023-03-29] MEDS: PROPRANOLOL LA 80 MG CAP.SA.24H PO SCH (08:50)
[2023-03-29] MEDS: SERTRALINE 100 MG TAB PO SCH (08:50)
[2023-03-29] MEDS: hydrOXYzine pamoate 25 MG CAP PO PRN (08:51)
--- NOTE | 2023-03-29 11:03 | P.PN ---
Progress Note - Text Progress Note Date: 03/29/23 Interval history: Patient was seen today in the hallway, and agreeable to speak with sports book writer in the office. Patient was making homicidal and suicidal threats, stating today, 03/29 is a bad day for him, because of past trauma, states that he does not feel safe being dischareged. Patient refusing [facility] re[facility] at this time. Patient was very vague and nonspecific with his threats. States that his appetite is good. Patient was approved for [facility] rehab, and is refusing to go there today because he states he feels he wants to hurt people. Denies any auditory or visual hallucinations. Endorsing suicidal ideations, homicidal ideations. MENTAL STATUS EXAM: General Appearance: Patient appears to be mildly overweight, balding, stated age is alert, more cooperative. improving. Patient appears to have improved hygiene and grooming. Behavior: Patient is seated without any agitated behavior, u ncooperative/nonspecific threats Speech: Patient's speech is fluent and nonpressured. Vague Mood/Affect: Patient reports their mood is not good, affect is congruent and constricted, improving Suicidality/Homicidality: Patient denies having any homicidal ideation intent or plan. Denies any suicidal ideations intent or plan Perceptions: Patient denies any visual hallucinations and denies any auditory hallucinations Though content/process: concrete, improving improving. No delusions or paranoia. more goal oriented and future oriented Memory and concentration: AOX3, grossly intact for the purposes of this session Judgment and insight: chronically poor IMPRESSIONS: Bipolar disorder Alcohol use disorder, severe dependence Cannabis use disorder severe Nicotine dependence PLAN: -Patient is admitted under voluntary status to MHU for stabilization of psychiatric symptoms and safety. Patient has not signed adult voluntary form and medication consent and is placed in patient's chart. Patient is psychiatrically stable, but due to increased chance of relapse if discharged back home, will await bed at rehab facility before discharge. -Medications : Geodon 40md bid for psychosis, propranolol LA 80 mg daily for anxiety/blood pressure, naltrexone 50 mg daily for alcohol cravings, BuSpar 3 times a day when necessary for anxiety, Zoloft 200 mg daily for mood/anxiety, trazadone 150mg qhs scheduled for insomnia, Visteral 25mg prn [id number] for anxiety -Ativan and Haldol PRN for agitation/aggression -NRT - nicotine patch -SW on board for discharge planning. Encourage patient to participate in groups to work on coping skills. Patient deferred with his journalism professor March 21. Packet faxed to [facility], patient refusing to go at this time, and [facility] is not available currently. Due to patient refusing rehab today and saying he is feeling again auicidal and wanting to hurt others we will Will monitor patient over the weekend, and likely d/c Saturday, after family meeting with his mother. Either patient returns home with mother or will be referred to [facility].
[2023-03-29] MEDS: ACETAMINOPHEN TAB 325 MG TAB PO PRN (20:46)
[2023-03-29] MEDS: traZODone HCL 100 MG TAB PO SCH (21:18)
[2023-03-30] MEDS: cloNIDine HCL 0.1 MG TAB PO PRN (02:47)
[2023-03-30] MEDS: ZIPRASIDONE 40 MG CAP PO SCH ×2 (08:15→20:33)
[2023-03-30] MEDS: PROPRANOLOL LA 80 MG CAP.SA.24H PO SCH (08:15)
[2023-03-30] MEDS: NALTREXONE HCL 50 MG TAB PO SCH (08:15)
[2023-03-30] MEDS: SERTRALINE 100 MG TAB PO SCH (08:15)
--- NOTE | 2023-03-30 14:29 | P.PN ---
Progress Note - Text Progress Note Date: 03/30/23 Interval history: The patient was seen today as coverage for Dr. Ingram. Their chart was reviewed, and the case was discussed with the nursing staff. The patient reports poor sleep. He reports fair appetite today. The patient has been participating in groups and other unit activities. The patient has been taking their psychiatric medications and denies side effects. The patient reports having suicidal thoughts but no intent or plan to hurt himself. He denies any homicidal ideation. There are no reports of delusions, manic symptoms, or hallucinations. The patient described his mood today "tarun" and he explained that yesterday was the birthday of his best friend who killed himself 13 years ago. He only slept for 3 hours yesterday with multiple awakening through the night. He denies anger or agitation today. [facility] and prefers to go to [facility] because this program will be closer to his family's home. MENTAL STATUS EXAM: General Appearance: Patient appears to be mildly overweight, balding, stated age is alert, more cooperative. Behavior: Patient is seated without any agitated behavior, uncooperative/nonspecific threats Speech: Patient's speech is fluent and non pressured. Vague Mood/Affect: Patient reports their mood is not good, affect is congruent and constricted, improving Suicidality /Homicidality: Patient denies having any homicidal ideation intent or plan. He reports suicidal ideation but denies any intent or plan. Perceptions: Patient denies any visual hallucinations and denies any auditory hallucinations Though content/process: concrete, improving improving. No delusions or paranoia. more goal oriented and future oriented Memory and concentration: AOX3, grossly intact for the purposes of this session Judgment and insight: chronically poor IMPRESSIONS: Bipolar disorder Alcohol use disorder, severe dependence Cannabis use disorder severe Nicotine dependence Treatment plan: Continue inpatient psychiatric hospitalization. Implement the following precautions as recommended by the admitting psychia trist: suicide and elopement Consult the medical team immediately if any medical concerns arise. Educate the patient on the benefits of participating in groups and other unit activities and encourage active participation. Lab work ordered: none Medications: continue the following medications Geodon 40md bid for psychosis Propranolol LA 80 mg daily for anxiety/blood pressure Naltrexone 50 mg daily for alcohol cravings BuSpar 10 mg PO 3 times a day when necessary for anxiety Zoloft 200 mg daily for mood/anxiety Trazadone 150mg qhs scheduled for insomnia Visteral 25mg prn [id number] for anxiety -Ativan and Haldol PRN for agitation/aggression -NRT - nicotine patch Discharge planning is currently in progress.
[2023-03-30] MEDS: traZODone HCL 100 MG TAB PO SCH (20:33)
[2023-03-30] MEDS: hydrOXYzine pamoate 25 MG CAP PO PRN (20:34)
[2023-03-30] MEDS: busPIRone HCl 10 MG TAB PO PRN (22:04)
[2023-03-31] MEDS: cloNIDine HCL 0.1 MG TAB PO PRN (04:07)
[2023-03-31] MEDS: PROPRANOLOL LA 80 MG CAP.SA.24H PO SCH (08:19)
[2023-03-31] MEDS: ZIPRASIDONE 40 MG CAP PO SCH ×2 (08:19→20:29)
[2023-03-31] MEDS: SERTRALINE 100 MG TAB PO SCH (08:20)
[2023-03-31] MEDS: NALTREXONE HCL 50 MG TAB PO SCH (08:20)
[2023-03-31 10:33] VITALS: RESP 16
[2023-03-31] MEDS ORDERED: LORazepam 1 MG TAB PO STA (10:52)
--- NOTE | 2023-03-31 15:22 | P.PN ---
Progress Note - Text Progress Note Date: 03/31/23 Interval history: The patient was seen today as coverage for Dr. Ingram. Their chart was reviewed, and the case was discussed with the nursing staff. The patient was acting bizarre and earlier today with bouts of agitation and inappropriate behavior. The patient received when necessary Ativan which helped him to control his agitation. The patient was seen after he got his when necessary medication and he was lying in bed in his room reported that he was feeling more agitated earlier today. The patient denies suicidal or homicidal ideation. He reports is still feeling down but not hopeless or suicidal. The patient reports fair sleep and appetite. The patient continues to take his psychiatric medications and denies side effects. MENTAL STATUS EXAM: General Appearance: Patient appears to be mildly overweight, balding, stated age is alert, more cooperative. Behavior: Patient is seated without any agitated behavior, uncooperative/nonspecific threats Speech: Patient's speech is fluent and non pressured. Mood/Affect: Patient reports their mood is not good, affect is congruent and constricted, improving Suicidality /Homicidality: Patient denies having any homicidal ideation intent or plan. He denies suicidal ideation , intent or plan. Perceptions: Patient denies any visual hallucinations and denies any auditory hallucinations Though content/process: concrete, improving. No delusions or paranoia. more goal oriented and future oriented Memory and concentration: AOX3, grossly intact for the purposes of this session Judgment and insight: impaired IMPRESSIONS: Bipolar disorder Alcohol use disorder, severe dependence Cannabis use disorder severe Nicotine dependence Treatment plan: Continue inpatient psychiatric hospitalization. Implement the following precautions as recommended by the admitting psychiatrist: suicide and elopement Consult the medical team immediately if any medical concerns arise. Educate the patient on the benefits of participating in groups and other unit activities and encourage active participation. Lab work ordered: none Medications: continue the following medications Geodon 40md bid for psychosis Propranolol LA 80 mg daily for anxiety/blood pressure Naltrexone 50 mg daily for alcohol cravings BuSpar 10 mg PO 3 times a day when necessary for anxiety Zoloft 200 mg daily for mood/anxiety Trazadone 150mg qhs scheduled for insomnia Visteral 25mg prn [id number] for anxiety -Ativan and Haldol PRN for agitation/aggression -NRT - nicotine patch Discharge planning is currently in progress.
[2023-03-31] MEDS: busPIRone HCl 10 MG TAB PO PRN (20:30)
[2023-03-31] MEDS: traZODone HCL 100 MG TAB PO SCH (20:30)
[2023-04-01] MEDS: ZIPRASIDONE 40 MG CAP PO SCH ×2 (08:10→22:05)
[2023-04-01] MEDS: NALTREXONE HCL 50 MG TAB PO SCH (08:10)
[2023-04-01] MEDS: SERTRALINE 100 MG TAB PO SCH (08:10)
[2023-04-01] MEDS: PROPRANOLOL LA 80 MG CAP.SA.24H PO SCH (08:10)
--- NOTE | 2023-04-01 12:04 | P.PN ---
Progress Note - Text Progress Note Date: 04/01/23 Interval history: Patient was seen today in the hallway, and agreeable to speak with parts data writer in the office. Patient states he's doing 'very good' and that the weekend went ok for him. Patient said he's going to groups, and his mood and anxiety feels 'balanced'. he was fairly concrete. continues to have limited/poor insight/judgment. Patient refusing [facility] at this time. States that his appetite is good. States that he will be going back home upon discharge. Denies any auditory or visual hallucinations. Denies suicidal ideations, homicidal ideations. MENTAL STATUS EXAM: General Appearance: Patient appears to be mildly overweight, balding, stated age is alert, more cooperative. improving. Patient appears to have improved hygiene and grooming. Behavior: Patient is seated without any agitated behavior, Speech: Patient's speech is fluent and nonpressured. Vague improving Mood/Affect: Patient reports their mood is very well, affect is congruent and constricted, improving Suicidality/Homicidality: Patient denies having any homicidal ideation intent or plan. Denies any suicidal ideations intent or plan Perceptions: Patient denies any visual hallucinations and denies any auditory hallucinations Though content/process: concrete, improving improving. No delusions or paranoia. more goal oriented and future oriented Memory and concentration: AOX3, grossly intact for the purposes of this session Judgment and insight: chronically poor, improving IMPRESSIONS: Bipolar disorder Alcohol use disorder, severe dependence Cannabis use disorder severe Nicotine dependence PLAN: -Patient is admitted under voluntary status to [facility]HU for stabilization of psychiatric symptoms and safety. Patient has not signed adult voluntary form and medication consent and is placed in patient's chart. Patient is psychiatrically stable, but due to increased chance of relapse if discharged back home, will await bed at rehab facility before discharge. -Medications : Geodon 40md bid for psychosis, propranolol LA 80 mg daily for anxiety/blood pressure, naltrexone 50 mg daily for alcohol cravings, BuSpar 3 times a day when necessary for anxiety, Zoloft 200 mg daily for mood/anxiety, trazadone 150mg qhs scheduled for insomnia, Visteral 25mg prn [id number] for anxiety -Ativan and Haldol PRN for agitation/aggression -NRT - nicotine patch -SW on board for discharge planning. Encourage patient to participate in groups to work on coping skills. Patient deferred with his trademark attorney March 21. likely d/c Saturday, after family meeting with his mother. Either patient returns home with mother or will be referred to [facility] Saturday.
[2023-04-01] MEDS: traZODone HCL 100 MG TAB PO SCH (22:05)
[2023-04-01] MEDS: busPIRone HCl 10 MG TAB PO PRN (22:05)
[2023-04-02 06:50] VITALS: TEMP 98
[2023-04-02] MEDS: PROPRANOLOL LA 80 MG CAP.SA.24H PO SCH (08:39)
[2023-04-02] MEDS: ZIPRASIDONE 40 MG CAP PO SCH (08:39)
[2023-04-02] MEDS: SERTRALINE 100 MG TAB PO SCH (08:39)
[2023-04-02] MEDS: NALTREXONE HCL 50 MG TAB PO SCH (08:39)
[2023-04-02 08:59] VITALS: BP 141/76; PULSE 81
--- NOTE | 2023-04-02 11:06 | P.DS ---
Providers Date of admission: 03/15/23 23:14 Expected date of discharge: 04/02/23 Attending physician: Ray Ingram MD Consults: 03/15/23 23:22 Consult Physician Routine Consulting Provider: Paul Physician Consult Reason/Comments: H&P Do you want consulting provider notified?: Yes Primary care physician: Parvez Conway MD - Discharge Diagnosis(es) (1) Cannabis use disorder, severe, dependence Current Visit: Yes Status: Acute Priority: High (2) Alcohol use disorder, severe, dependence Current Visit: Yes Status: Acute Priority: High (3) Nicotine dependence Current Visit: Yes Status: Acute Priority: Low (4) Bipolar disorder without psychotic features Current Visit: Yes Status: Acute Priority: High Hospital Course: Admission HPI: Admission note was completed by leader writer "Patient presented to the hospital yesterday brought in by family. Patient was apparently having visions of killing himself in the family. Patient was petitioned by his mother who stated that "not sleeping for several days. Agitated, pacing, threatening to fight his father. Third ER visit in 6 days. Today he said he was in a trance and he wished for someone to come and kill us all." Patient has a history of bipolar disorder, currently following up at [facility]. He also has a history of alcohol abuse. He had poor eye contact during the interview, was evasive, guarded. Very concrete. He claims that he was "arguing with my parents" and states that he does not remember why they were concerned and brought in the hospital. He claims that "they're probably worried about my attitude". He states that his attitude "flip flops". He states that he is not having any paranoia at this time. States that his sleep is poor appetite is poor he is feeling angry today, denying any depression. Admits to anxiety. States that he drinks several beers a day around a 6 pack of alcohol. He claims that he also smokes marijuana about 3-5 times a day. Denies any other recreational drug use. Urine drug screen is positive for benzodiazepines and THC. Patient denies any suicidal or homicidal ideations intent or plan. At this time patient denies any auditory or visual hallucinations. Patient denies any flight of ideas racing thoughts and increased in goal directed behavior. " Hospital course: Upon admission to the unit patient was admitted involuntarily on a petition and certificate and a second certificate was completed and faxed with the courts. Patient ended up signing a deferral with the defense attorney and agreeing to treatment. Patient was initially bizarre however with time and treatment he eventually got along well with other patients on the unit and followed unit protocol. Patient was compliant with the medications and denied any side effects throughout hospital course. Patient was started on Geodon and increase the dose of 40 mg twice a day for psychosis/mood stabilization, propranolol long-acting 80 mg daily for anxiety/blood pressure, naltrexone 50 mg by mouth daily protocol cravings, BuSpar 3 times a day when necessary for anxiety, Zoloft 200 mg daily for mood/anxiety, trazodone 150 mg daily at bedtime scheduled for insomnia/mood, Vistaril when necessary for anxiety.. Patient spoke of his stressors and engaged in therapy both group and individual. Patient was also seen by medical team for history and physical exam. Throughout the course of the hospitalization patient gradually improved with regards to mood, anxiety, sleep and returned back to their baseline level of functioning. On the day of discharge patient denied any suicidal or homicidal ideations intent or plan denied any auditory or visual hallucinations. Patient endorsed wanting to live for his sobriety and his family and job. The patient denied any access to guns or weapons. Patient denied any paranoia and did not endorse any delusions. Patient does have a significant history of substance abuse and was counseled on abstaining from all substances including alcohol and marijuana. Patient elected to go to rehab, did the intake over the phone, patient preferred not to go to [facility] rehab due to distance and will be continuing to wait for [facility] intake within the next few days, until then patient's mother claims that she is okay with having patient back at home for the time being. Patient was also counseled on the medications and need for regular compliance and was encouraged to follow-up with their outpatient appointment for mental health and also for primary care. Prior to discharge a family meeting will be arranged by school social worker to answer any questions and ensure safety upon discharge. Mental status exam: General Appearance: Patient appears to be mildly overweight, stated age is alert, pleasant, and cooperative. Patient is in no acute distress and has improved hygiene and grooming Behavior: Patient is calmly seated without any agitated behavior. cooperative Speech: Patient's speech is fluent and nonpressured. Mood/Affect: Patient reports their mood is "good", affect is congruent Suicidality/Homicidality: Patient denies having any suicidal or homicidal ideation intent or plan. Perceptions: Patient denies any auditory or visual hallucinations. Though content/process: There is no evidence of any delusional thought content and thought process is linear and goal-directed. more future oriented Memory and concentration: AOX3, grossly intact for the purposes of this session. Can spell "WORLD" backwards correctly. Judgment and insight: chronically poor, however has improved with guarded prognosis Impression: Bipolar disorder disorder with psychotic features Alcohol use disorder, severe dependence Cannabis use disorder severe Nicotine dependence Plan: -Continue with discharge today as patient has improved and stabilized psychiatrically and is not currently an imminent threat to himself and/or others. Patient will remain at chronically elevated risk for harm to self and/or others due to his impulsivity, chronic mental health symptoms and polysubstance abuse. -Continue medications: continue with geodon 40 mg bid for psychosis/mood stabilization, propranolol [place] 80 mg daily for anxiety/blood pressure, naltrexone 50 mg daily for etoh cravings, buspar 20 mg 3 times a day for anxiety, Zoloft 200 mg daily for mood/anxiety, trazodone 150 mg daily at bedtime for insomnia/mood, Vistaril when necessary for anxiety. -Patient was counseled on the need for medication compliance and appropriate follow-up at mental health and also primary care for medical issues. Patient verbalized understanding and agreed. -Social work to arrange for and conduct family meeting to ensure safety upon discharge and answer any questions/concerns. Patient's mother is agreeable to have patient come back to her house until he gets into rehab at [facility], currently pending an intake date. Social work also to arrange for patients follow up appointments with [facility] for psychiatric care along with follow up with primary care provider. -Patient counseled on abstaining from recreational drugs and marijuana and alcohol. Was informed/educated on the adverse effects on their physical and mental health. Patient verbally agreed and understood. Patient is currently awaiting [facility] intake date, will be discharged home today. -Patient was instructed to return to the hospital or seek immediate medical care if their psychiatric or medical symptoms do worsen or reoccur. Allergies Allergy/AdvReac Type Severity Reaction Status Date / Time No Known Allergies Allergy Verified 03/15/23 21:26 Laboratory Results WBC 10.7 k/uL (3.8-10.6) H 03/15/23 21:58 RBC 5.05 m/uL (4.30-5.90) 03/15/23 21:58 Hgb 15.8 gm/dL (13.0-17.5) 03/15/23 21:58 Hct 44.9 % (39.0-53.0) 03/15/23 21:58 MCV 88.9 fL (80.0-100.0) 03/15/23 21:58 MCH 31.2 pg (25.0-35.0) 03/15/23 21:58 MCHC 35.1 g/dL (31.0-37.0) 03/15/23 21:58 RDW 12.8 % (11.5-15.5) 03/15/23 21:58 Plt Count 226 k/uL (150-450) 03/15/23 21:58 MPV 6.8 03/15/23 21:58 Sodium 140 mmol/L (137-145) 03/15/23 21:58 Potassium 4.0 mmol/L (3.5-5.1) 03/15/23 21:58 Chloride 107 mmol/L (98-107) 03/15/23 21:58 Carbon Dioxide 17 mmol/L (22-30) L 03/15/23 21:58 Anion Gap 16 mmol/L 03/15/23 21:58 BUN 17 mg/dL (9-20) 03/15/23 21:58 Creatinine 1.03 mg/dL (0.66-1.25) 03/15/23 21:58 Est GFR (CKD-EPI)AfAm >90 (>60 ml/min/1.73 sqM) 03/15/23 21:58 Est GFR (CKD-EPI)NonAf >90 (>60 ml/min/1.73 sqM) 03/15/23 21:58 Glucose 87 mg/dL (74-99) 03/15/23 21:58 Calcium 9.3 mg/dL (8.4-10.2) 03/15/23 21:58 Total Bilirubin 0.6 mg/dL (0.2-1.3) 03/15/23 21:58 AST 29 U/L (17-59) 03/15/23 21:58 ALT 20 U/L (4-49) 03/15/23 21:58 Alkaline Phosphatase 75 U/L (38-126) 03/15/23 21:58 Total Protein 7.9 g/dL (6.3-8.2) 03/15/23 21:58 Albumin 4.5 g/dL (3.5-5.0) 03/15/23 21:58 Urine Color Colorless 03/15/23 17:29 Urine Appearance Cloudy (Clear) 03/15/23 17:29 Urine pH 5.0 (5.0-8.0) 03/15/23 17:29 Ur Specific [place] 1.004 (1.001-1.035) 03/15/23 17:29 Urine Protein Negative (Negative) 03/15/23 17:29 Urine Glucose (UA) Negative (Negative) 03/15/23 17:29 Urine Ketones Negative (Negative) 03/15/23 17:29 Urine Blood Negative (Negative) 03/15/23 17:29 Urine Nitrite Negative (Negative) 03/15/23 17:29 Urine Bilirubin Negative (Negative) 03/15/23 17:29 Urine Urobilinogen <2.0 mg/dL (<2.0) 03/15/23 17:29 Ur Leukocyte Esterase Negative (Negative) 03/15/23 17:29 Urine WBC <1 /hpf (0-5) 03/15/23 17:29 Urine Opiates Screen Not Detected (NotDetected) 03/15/23 17:29 Ur Oxycodone Screen Not Detected (NotDetected) 03/15/23 17:29 Urine Methadone Screen Not Detected (NotDetected) 03/15/23 17:29 Ur Propoxyphene Screen Not Detected (NotDetected) 03/15/23 17:29 Ur Barbiturates Screen Not Detected (NotDetected) 03/15/23 17:29 U Tricyclic Antidepress Not Detected (NotDetected) 03/15/23 17:29 Ur Phencyclidine Scrn Not Detected (NotDetected) 03/15/23 17:29 Ur Amphetamines Screen Not Detected (NotDetected) 03/15/23 17:29 U Methamphetamines Scrn Not Detected (NotDetected) 03/15/23 17:29 U Benzodiazepines Scrn Detected (NotDetected) H 03/15/23 17:29 Urine Cocaine Screen Not Detected (NotDetected) 03/15/23 17:29 U Marijuana (THC) Screen Detected (NotDetected) H 03/15/23 17:29 SARS-CoV-2 (PCR) Not Detected (Not Detectd) 03/29/23 13:04 Vital Signs Temp 98.0 F 04/02/23 06:27 Pulse 81 04/02/23 08:41 Resp 16 04/02/23 06:27 BP 141/76 04/02/23 08:41 Pulse Ox 99 04/02/23 06:27 FiO2 Patient Condition at Discharge: Stable Plan - Discharge Summary Discharge Rx Participant: No New Discharge Prescriptions: No Action Ibuprofen [Motrin Ib] 200 mg PO Q8H PRN PRN Reason: Fever And/ Or Pain busPIRone HCL [Buspirone HCl] 10 mg PO TID PRN PRN Reason: Anxiety Naltrexone HCl 50 mg PO DAILY Melatonin 20 mg PO HS PRN PRN Reason: Insomnia Propranolol [Inderal] 10 mg PO BID PRN PRN Reason: Anxiety buPROPion XL [Wellbutrin XL] 300 mg PO DAILY Discharge Medication List Ibuprofen [Motrin Ib] 200 mg PO Q8H PRN 03/11/23 [History] Melatonin 20 mg PO HS PRN 03/11/23 [History] Naltrexone HCl 50 mg PO DAILY 03/11/23 [History] Propranolol [Inderal] 10 mg PO BID PRN 03/11/23 [History] buPROPion XL [Wellbutrin XL] 300 mg PO DAILY 03/11/23 [History] busPIRone HCL [Buspirone HCl] 10 mg PO TID PRN 03/11/23 [History] Follow up Appointment(s)/Referral(s): Parvez Conway MD [Primary Care Provider] - 1-2 days Patient Instructions/Handouts: How to Stop Smoking (ED), Bipolar Disorder (DC), Abuse of Alcohol (GEN) Activity/Diet/Wound Care/Special Instructions: Avoid the use of street drugs and alcohol. Take all medications as prescribed. When you are in need of refills on your medications, please contact your medical provider and/or outpatient psychiatrist/provider to have this done. Please go to your scheduled outpatient appointment for aftercare treatment. If symptoms return or become worse, call the crisis line at and/or go to the nearest emergency room for evaluation. National Suicide Hotline 988.
== END 2023-04-02 15:15 | disposition home or self-care (01) | DRG 753 ==
LOC: EC 15:31 → 3MHU 23:14
PROVIDERS: ADMIT Psychiatry & Neurology Psychiatry; ATTEND Psychiatry & Neurology Psychiatry
DX: F31.9 Bipolar disorder, unspecified (principal); G47.00 Insomnia, unspecified; R45.850 Homicidal ideations; R45.851 Suicidal ideations; F10.20 Alcohol dependence, uncomplicated; Z68.31 Body mass index [BMI] 31.0-31.9, adult; J45.909 Unspecified asthma, uncomplicated; F12.20 Cannabis dependence, uncomplicated; E66.3 Overweight; Z11.52 Encounter for screening for COVID-19; Z28.310 Unvaccinated for COVID-19; Z28.21 Immunization not carried out because of patient refusal; F17.210 Nicotine dependence, cigarettes, uncomplicated; Z71.51 Drug abuse counseling and surveillance of drug abuser; Z71.41 Alcohol abuse counseling and surveillance of alcoholic; F41.9 Anxiety disorder, unspecified; Z71.89 Other specified counseling; Z88.4 Allergy status to anesthetic agent; Z79.899 Other long term (current) drug therapy; Z65.3 Problems related to other legal circumstances
CPT/HCPCS: 36415; 80053; 80306; 81001; 82075; 85027; 87635; 93005; 99285

== ENCOUNTER 2024-11-16 15:15 | Inpatient (IN) | payer OTHER ==
[2024-11-16] MEDS: PANTOPRAZOLE 40 MG/10 ML VIAL IVP STA (16:26)
[2024-11-16] MEDS: ONDANSETRON 4 MG/2 ML VIAL IVP STA (16:27)
[2024-11-16] MEDS: KETOROLAC 15 MG/ML 1 ML VIAL IVP STA (16:27)
[2024-11-16] MEDS: SODIUM CHLORIDE 0.9% 1,000 ML IV ONE (16:32)
[2024-11-16 16:38] LABS: Bacteria,Urine Rare /hpf; Hyaline Casts,Urine 5 /lpf (0-2); Mucus,Urine Rare /hpf; WBC,Urine 1 /hpf (0-5)
[2024-11-16 16:40] LABS: Urn Cannabinoid Scrn Detected (NotDetected)
[2024-11-16 16:41] LABS: Barbiturate Screen,Urine Not Detected (NotDetected); Benzodiazepines Screen,Urine Not Detected (NotDetected); Opiate Screen,Urine Not Detected (NotDetected); Oxycodone Screen, Urine Not Detected (NotDetected); Phencyclidine Screen,Urine Not Detected (NotDetected); Tricyclic Antidepressant,Urine Not Detected (NotDetected)
[2024-11-16 16:51] LABS: Basophils # (A) 0.02 10*3/uL (0.00-0.10); Basophils % (A) 0.2 %; Eosinophils # (A) 0.19 10*3/uL (0.04-0.35); Eosinophils % (A) 1.8 %; HCT 36.2 % (39.6-50.0); HGB 13.9 g/dL (13.0-17.0); Lymphocytes # (A) 2.50 10*3/uL (0.90-5.00); Lymphocytes % (A) 23.5 %; MCH 32.8 pg (27.0-32.0); MCV 85.4 fL (80.0-97.0); Monocytes # (A) 1.16 10*3/uL (0.20-1.00); Monocytes % (A) 10.9 %; Neutrophils # (A) 6.74 10*3/uL (1.80-7.70); Neutrophils % (A) 63.1 %; Platelet Count 294 10*3/uL (140-440); RBC 4.24 10*6/uL (4.40-5.60); RDW 11.9 % (11.5-14.5); WBC 10.66 10*3/uL (4.50-10.00)
[2024-11-16 16:53] LABS: INR 0.9 (<1.2); Partial Thromboplastin Time 23.7 sec (22.0-30.0); Prothrombin Time 10.4 sec (10.0-12.5)
[2024-11-16 16:55] LABS: ALT 17 U/L (4-49); AST 22 U/L (17-59); African American GFR (CKD) >90 (>60 ml/min/1.73 sqM); Albumin 3.7 g/dL (3.5-5.0); Alkaline Phosphatase 57 U/L (38-126); Amylase 38 U/L (30-110); Anion Gap 7 mmol/L; Blood Urea Nitrogen 22 mg/dL (9-20); Calcium 8.6 mg/dL (8.4-10.2); Carbon Dioxide 25 mmol/L (22-30); Chloride 85 mmol/L (98-107); Glucose 100 mg/dL (74-99); Lipase 124 U/L (23-300); MCHC 38.4 g/dL (32.0-37.0); Non-African American GFR(CKD) >90 (>60 ml/min/1.73 sqM); Potassium 3.6 mmol/L (3.5-5.1); Total Protein 6.3 g/dL (6.3-8.2)
[2024-11-16 16:56] LABS: Sodium 117 mmol/L (137-145)
--- NOTE | 2024-11-16 16:58 | US ---
EXAMINATION TYPE: US gallbladder DATE OF EXAM: 11/16/2024 COMPARISON: NONE CLINICAL INDICATION: Male, 34 years old with history of ruq pain; TECHNIQUE: Grayscale and color Doppler imaging of the right upper quadrant was performed. FINDINGS: EXAM MEASUREMENTS: Liver Length: 18.9 cm Gallbladder Wall: 0.2 cm CBD: 0.4 cm Right Kidney: 11.2 x 6.2 x 6.3 cm MYSTERY SHOPPER NOTES: Pancreas: Tail obscured by overlying bowel gas Liver: wnl Gallbladder: wnl Evidence for sonographic Coulter's sign: No CBD: wnl Right Kidney: wnl Difficult exam - patient not able to hold breath in The visualized portions of the fingers are unremarkable. The liver is within normal limits. Gallbladd er demonstrates no wall thickening, stones or surrounding fluid. Negative sonographic Coulter's sign. Common bile duct is within normal limits. Right kidney demonstrates no shadowing calculus, hydronephr osis or solid mass. IMPRESSION: No ultrasound evidence for acute process. [facility], , 11/16/2024 4:56 PM
--- NOTE | 2024-11-16 17:06 | XR ---
EXAMINATION TYPE: XR chest 2V DATE OF EXAM: 11/16/2024 5:03 PM COMPARISON: None TECHNIQUE: XR chest 2V Frontal and lateral views of the chest. CLINICAL INDICATION:Male, 34 years old with history of palpitations; FINDINGS: Lungs/Pleura: There is no evidence of pleural effusion, focal consolidation, or pneumothorax. Pulmonary vascularity: Unremarkable. Heart/mediastinum: Cardiomediastinal silhouette is unremarkable. Musculoskeletal: No acute osseous pathology. IMPRESSION: No acute cardiopulmonary disease/process. [facility], , 11/16/2024 5:04 PM
--- NOTE | 2024-11-16 18:10 | CT ---
EXAMINATION TYPE: CT brain wo con DATE OF EXAM: 11/16/2024 6:05 PM COMPARISON: None. CLINICAL INDICATION: Male, 34 years old with history of lethargy, hyponatremia, lethargy, hyponatremi a TECHNIQUE: Brain: Axial CT images of the brain were obtained with coronal and sagittal reformats created and rev iewed. Contrast used: None. Oral contrast used: None. CT DLP: 2454 mGycm, Automated exposure control for dose reduction was used. FINDINGS: Since of motion artifact is present. Brain: Extra-axial spaces: No abnormal extra-axial fluid collections. Ventricular system: Within normal limits Cerebral parenchyma: No acute intraparenchymal hemorrhage or mass effect. The richardson-white junction is well differentiated. Cerebellum: Unremarkable. Mass effect: No evidence of midline shift. Intracranial vasculature: unremarkable Soft tissues: Normal. Calvarium/osseous structures: No depressed skull fracture. Paranasal sinuses and mastoid air cells: Mild scattered paranasal sinus disease. Visualized orbits: Orbital contents are intact. IMPRESSION: Extensive motion artifact limits evaluation slightly. No acute intracranial process. [facility], , 11/16/2024 6:07 PM
[2024-11-16 18:20] LABS: African American GFR (CKD) >90 (>60 ml/min/1.73 sqM); Anion Gap 5 mmol/L; Blood Urea Nitrogen 21 mg/dL (9-20); Calcium 8.0 mg/dL (8.4-10.2); Carbon Dioxide 24 mmol/L (22-30); Chloride 88 mmol/L (98-107); Glucose 90 mg/dL (74-99); Non-African American GFR(CKD) >90 (>60 ml/min/1.73 sqM)
[2024-11-16 18:24] LABS: Rouleaux Present
[2024-11-16 18:32] LABS: Potassium 3.7 mmol/L (3.5-5.1); Sodium 117 mmol/L (137-145)
[2024-11-16] MEDS ORDERED: ONDANSETRON 4 MG/2 ML VIAL IVP PRN (18:40)
[2024-11-16] MEDS ORDERED: NALOXONE 0.4 MG/ML 1 ML VIAL IV PRN (18:40)
[2024-11-16 18:41] LABS: Bilirubin,Urine Negative (Negative); Blood,Urine Negative (Negative); Color,Urine Yellow; Glucose,Urine (UA) Negative (Negative); Ketones,Urine Negative (Negative); Leukocyte Esterase,Urine Negative (Negative); Nitrite,Urine Negative (Negative); PH, Urine 6.0 (5.0-8.0); Protein,Urine Negative (Negative); Specific Gravity,Urine 1.024 (1.001-1.035); Urobilinogen,Urine <2.0 mg/dL (<2.0)
[2024-11-16] MEDS: SODIUM CHLORIDE 0.9% 1,000 ML IV STA (18:50)
--- NOTE | 2024-11-16 19:06 | ED ---
General Adult HPI - General Chief complaint: Psychiatric Symptoms Stated complaint: R sided flank pain Time Seen by Provider: 11/16/24 15:40 Source: patient, RN notes reviewed, old records reviewed Mode of arrival: ambulatory Limitations: no limitations - History of Present Illness Initial comments: Patient is a 34-year-old male who presents emergency department for multiple complaints. Patient's father brought him in for psychiatric evaluation. Was making homicidal statements on Facebook about family members and petitioned him to be evaluated. He does have a mental health history. Unknown if he is taking medications. Patient is also complaining of some heart palpitations as well as abdominal discomfort. States this started after he took numerous marijuana Gummies last night because he has not been sleeping. States that his sleeping issues have been ongoing for days. States he has palpitations as well as some nonspecific right upper quadrant abdominal discomfort. No nausea or vomiting. No diarrhea. No other complaints. Presents for further evaluation at this time. - Related Data Home Medications Medication Instructions Recorded Confirmed lisinopriL 40 mg PO DAILY 11/16/24 11/16/24 Allergies Allergy/AdvReac Type Severity Reaction Status Date / Time No Known Allergies Allergy Verified 11/16/24 17:20 Review of Systems ROS Statement: Those systems with pertinent positive or pertinent negative responses have been documented in the HPI. Review of Systems: CONST: Denies fever EYES: Denies blurry vision ENT: Denies nasal congestion C/V: Endorses palpitations RESP: Denies shortness of breath GI: Endorses right upper quadrant pain : Denies dysuria SKIN: Denies rash. MSK: Denies joint pain. NEURO: Denies headache ROS Other: All systems not noted in ROS Statement are negative. Past Medical History Past Medical History: Asthma, Hypertension Additional Past Medical History / Comment(s): Slipped discs L1-L5 History of Any Multi-Drug Resistant Organisms: None Reported Past Surgical History: Tonsillectomy Past Anesthesia/Blood Transfusion Reactions: No Reported Reaction Past Psychological History: Anxiety, Depression Smoking Status: Current every day smoker Past Alcohol Use History: Abuse, Daily Past Drug Use History: Marijuana, Methamphetamine - Past Family History Mother History Unknown: Yes Additional Family Medical History / Comment(s): Patient did not want to disclose information on parents Father History Unknown: Yes Additional Family Medical History / Comment(s): Patient did not want to disclose information on parents General Exam - General Exam Comments Initial Comments: General: Appears sleepy. HEAD: Normal with no signs of head trauma. EYES: PERRLA, EOMI, conjunctiva normal, no discharge. Pupils are 3 mm and equal bilaterally. ENT: Hearing grossly intact, normal oropharynx. RESPIRATORY: Clear breath sounds bilaterally. No wheezes, rales, or rhonchi. C/V: Regular rate and rhythm. S1 and S2 auscultated, no edema, peripheral pulses 2+ and intact throughout ABD: Abd is soft, nontender, nondistended. No significant tenderness on palpation. No guarding or rebound tenderness. No peritoneal signs. EXT: Normal range of motion, no obvious deformity SKIN: No rashes or lesions observed on exposed skin. NEURO: Alert and oriented x 4. Cranial nerves II-XII intact. No focal sensory or strength deficits. Limitations: no limitations Course Vital Signs 11/16/24 11/16/24 15:21 18:17 Temperature 97.8 F Pulse Rate 88 81 Respiratory 20 16 Rate Blood Pressure 99/65 91/58 O2 Sat by Pulse 98 Oximetry Medical Decision Making - Medical Decision Making Was pt. sent in by a medical professional or institution (, PA, ARCHITECTURAL WOOD MODEL MAKER, urgent care, hospital, or fci...) When possible be specific @ -No Did you speak to anyone other than the patient for history (EMS, parent, family, police, friend...)? What history was obtained from this source @ -Spoke with patient's father who provided the history and documented evidence of the homicidal statements made on Facebook about family members. Patient's father did petition the patient. Did you review nursing and triage notes (agree or disagree)? Why? @ -I reviewed and agree with nursing and triage notes Were old charts reviewed (outside hosp., previous admission, EMS record, old EKG, old radiological studies, urgent care reports/EKG's, fci records)? Report findings @ -No old charts were reviewed Differential Diagnosis (chest pain, altered mental status, abdominal pain women, abdominal pain men, vaginal bleeding, weakness, fever, dyspnea, syncope, headache, dizziness, GI bleed, back pain, seizure, CVA, palpatations, mental health, musculoskeletal)? @ -Differential Abdominal Pain Men: Appendicitis, cholecystitis, diverticulosis, ischemic bowel, pancreatitis, hepatitis, UTI, gastroenteritis, AAA, incarcerated hernia, bowel obstruction, constipation, inflammatory bowel, hepatitis, peptic ulcer disease, splenic infarction, perforated viscus, testicular torsion, this is not meant to be an all-inclusive list Differential Mental Health Depression, anxiety, bipolar, psychosis, schizophrenia, borderline personality, situational depression, adjustment disorder, behavioral disorder, brain tumor, malingering, substance abuse, encephalopathy, medication reaction, dementia, hypothyroidism, degenerative neurologic disorder, lupus.... This is not meant to be all-inclusive list EKG interpreted by me (3pts min.). @ -As above X-rays interpreted by me (1pt min.). @ -Chest x-ray reveals no obvious acute cardiopulmonary process. CT interpreted by me (1pt min.). @ -CT brain has motion artifact but shows no obvious acute process or injury. U/S interpreted by me (1pt. min.). @ -Gallbladder ultrasound shows no obvious acute intra-abdominal process. What testing was considered but not performed or refused? (CT, X-rays, U/S, labs)? Why? @ -None What meds were considered but not given or refused? Why? @ -None Did you discuss the management of the patient with other professionals (professionals i.e. , PA, ARCHITECTURAL WOOD MODEL MAKER, lab, RT, psych nurse, manager social media, geophysical engineer, teacher, unemployment insurance hearing officer, welfare case worker)? Give summary @ -Discussed with admitting provider, [facility] Dr. Stone who accepted the admission. Requested maintenance infusion of normal saline at 75 cc an hour, nephrology consult, as well as repeat BMP in 4 to 6 hours which was ordered. Was smoking cessation discussed for >3mins.? @ -No Was critical care preformed (if so, how long)? @ -No Were there social determinants of health that impacted care today? How? (Homelessness, low income, unemployed, alcoholism, drug addiction, jimenez sportation, low edu. Level, literacy, decrease access to med. care, snf, rehab)? @ -No Was there de-escalation of care discussed even if they declined (Discuss DNR or withdrawal of care, Hospice)? DNR status @ -No What co-morbidities impacted this encounter? (DM, HTN, Smoking, COPD, CAD, Cancer, CVA, ARF, Chemo, Hep., AIDS, mental health diagnosis, sleep apnea, morbid obesity)? @ -Psychiatric illness Was patient admitted / discharged? Hospital course, mention meds given and route, prescriptions, significant lab abnormalities, going to OR and other pertinent info. @ -Patient presents emergency department complaining of nonspecific abdominal discomfort as well as heart palpitations. Took a lot of THC Gummies last night. I do believe this is likely cause of most of his physical complaints but also is being petitioned by his father for homicidal ideations. BAT is 0. Sitter ordered. Will obtain general workup. Patient was in agreement this plan. EKG shows no signs of acute ischemia. Chest x-ray unremarkable. Gallbladder ultrasound unremarkable. Laboratory studies are all unremarkable except for hyponatremia of 117 and hypochloremia of 85 which is confirmed on repeat draw. Troponin is undetectable. CT brain was obtained due to the low sodium and was unremarkable. I updated the patient as well as father. Plan is to admit the patient for his hyponatremia and evaluation by nephrology. He already [place] 1 L fluid bolus and will start on maintenance fluids at 75 cc an hour after I discussed with the admitting provider, Dr. Stone. We agreed repeat lab draw in 4 to 6 hours and nephrology consult. Sitter ordered. Consult placed to psychiatry for evaluation of the homicidal ideations and patient was petitioned. Patient admitted in stable condition. Undiagnosed new problem with uncertain prognosis? @ -No Drug Therapy requiring intensive monitoring for toxicity (Heparin, Nitro, Insulin, Cardizem)? @ -No Were any procedures done? @ -No Diagnosis/symptom? @ -Hyponatremia, homicidal ideations Acute, or Chronic, or Acute on Chronic? @ -Acute Uncomplicated (without systemic symptoms) or Complicated (systemic symptoms)? @ -Complicated Side effects of treatment? @ -No Exacerbation, Progression, or Severe Exacerbation? @ -No Poses a threat to life or bodily function? How? (Chest pain, [place], [place], pneumonia, PE, COPD, DKA, ARF, appy, cholecystitis, CVA, Diverticulitis, Homicidal, Suicidal, threat to staff... and all critical care pts) @ -Yes - Lab Data Result diagrams: 11/16/24 16:18 11/16/24 17:46 Lab Results 11/16/24 11/16/24 11/16/24 Range/Units 16:03 16:03 16:18 WBC 10.66 H (4.50-10.00) 10*3/uL RBC 4.24 L (4.40-5.60) 10*6/uL Hgb 13.9 (13.0-17.0) g/dL Hct 36.2 L (39.6-50.0) % MCV 85.4 (80.0-97.0) fL MCH 32.8 H (27.0-32.0) pg MCHC 38.4 H (32.0-37.0) g/dL Plt Count 294 (140-440) 10*3/uL MPV 8.6 L (9.5-12.2) fL Immature Gran % (Auto) 0.5 % Neutrophils % 63.1 % Lymphocytes % 23.5 % Monocytes % 10.9 % Eosinophils % 1.8 % Basophils % 0.2 % Immature Gran # 0.05 H (0.00-0.04) 10*3/uL Neutrophils # 6.74 (1.80-7.70) 10*3/uL Lymphocytes # 2.50 (0.90-5.00) 10*3/uL Monocytes # 1.16 H (0.20-1.00) 10*3/uL Eosinophils # 0.19 (0.04-0.35) 10*3/uL Basophils # 0.02 (0.00-0.10) 10*3/uL Manual Slide Review Performed Shakira Present PT (10.0-12.5) sec INR (<1.2) APTT (22.0-30.0) sec Sodium (137-145) mmol/L Potassium (3.5-5.1) mmol/L Chloride (98-107) mmol/L Carbon Dioxide (22-30) mmol/L Anion Gap mmol/L BUN (9-20) mg/dL Creatinine (0.66-1.25) mg/dL Est GFR (CKD-EPI)AfAm (>60 ml/min/1.73 sqM) Est GFR (CKD-EPI)NonAf (>60 ml/min/1.73 sqM) Glucose (74-99) mg/dL Calcium (8.4-10.2) mg/dL Total Bilirubin (0.2-1.3) mg/dL AST (17-59) U/L ALT (4-49) U/L Alkaline Phosphatase (38-126) U/L Troponin I (0.000-0.034) ng/mL Total Protein (6.3-8.2) g/dL Albumin (3.5-5.0) g/dL Amylase (30-110) U/L Lipase (23-300) U/L TSH (0.465-4.680) mIU/L Urine Color Yellow Urine Appearance Clear (Clear) Urine pH 6.0 (5.0-8.0) Ur Specific [place] 1.024 (1.001-1.035) Urine Protein Negative (Negative) Ur Protein Confirm Not Reportable Urine Glucose (UA) Negative (Negative) Urine Ketones Negative (Negative) Urine Blood Negative (Negative) Urine Nitrite Negative (Negative) Urine Bilirubin Negative (Negative) Ur Bilirubin Confirm Not Reportable Urine Urobilinogen <2.0 (<2.0) mg/dL Ur Leukocyte Esterase Negative (Negative) Urine WBC 1 (0-5) /hpf Urine Bacteria Rare H (None) /hpf Hyaline Casts 5 H (0-2) /lpf Urine Mucus Rare H (None) /hpf Urine Opiates Screen Not Detected (NotDetected) Ur Oxycodone Screen Not Detected (NotDetected) Urine Methadone Screen Not Detected (NotDetected) Ur Barbiturates Screen Not Detected (NotDetected) U Tricyclic Antidepress Not Detected (NotDetected) Ur Phencyclidine Scrn Not Detected (NotDetected) Ur Amphetamines Screen Not Detected (NotDetected) U Methamphetamines Scrn Not Detected (NotDetected) U Benzodiazepines Scrn Not Detected (NotDetected) Urine Cocaine Screen Not Detected (NotDetected) U Marijuana (THC) Screen Detected H (NotDetected) Serum Alcohol mg/dL 11/16/24 11/16/24 11/16/24 Range/Units 16:18 16:18 16:18 WBC (4.50-10.00) 10*3/uL RBC (4.40-5.60) 10*6/uL Hgb (13.0-17.0) g/dL Hct (39.6-50.0) % MCV (80.0-97.0) fL MCH (27.0-32.0) pg MCHC (32.0-37.0) g/dL Plt Count (140-440) 10*3/uL MPV (9.5-12.2) fL Immature Gran % (Auto) % Neutrophils % % Lymphocytes % % Monocytes % % Eosinophils % % Basophils % % Immature Gran # (0.00-0.04) 10*3/uL Neutrophils # (1.80-7.70) 10*3/uL Lymphocytes # (0.90-5.00) 10*3/uL Monocytes # (0.20-1.00) 10*3/uL Eosinophils # (0.04-0.35) 10*3/uL Basophils # (0.00-0.10) 10*3/uL Manual Slide Review Rouleaux PT 10.4 (10.0-12.5) sec INR 0.9 (<1.2) APTT 23.7 (22.0-30.0) sec Sodium 117 L* (137-145) mmol/L Potassium 3.6 (3.5-5.1) mmol/L Chloride 85 L (98-107) mmol/L Carbon Dioxide 25 (22-30) mmol/L Anion Gap 7 mmol/L BUN 22 H (9-20) mg/dL Creatinine 0.91 (0.66-1.25) mg/dL Est GFR (CKD-EPI)AfAm >90 (>60 ml/min/1.73 sqM) Est GFR (CKD-EPI)NonAf >90 (>60 ml/min/1.73 sqM) Glucose 100 H (74-99) mg/dL Calcium 8.6 (8.4-10.2) mg/dL Total Bilirubin 0.7 (0.2-1.3) mg/dL AST 22 (17-59) U/L ALT 17 (4-49) U/L Alkaline Phosphatase 57 (38-126) U/L Troponin I <0.012 (0.000-0.034) ng/mL Total Protein 6.3 (6.3-8.2) g/dL Albumin 3.7 (3.5-5.0) g/dL Amylase 38 (30-110) U/L Lipase 124 (23-300) U/L TSH 0.449 L (0.465-4.680) mIU/L Urine Color Urine Appearance (Clear) Urine pH (5.0-8.0) Ur Specific [place] (1.001-1.035) Urine Protein (Negative) Ur Protein Confirm Urine Glucose (UA) (Negative) Urine Ketones (Negative) Urine Blood (Negative) Urine Nitrite (Negative) Urine Bilirubin (Negative) Ur Bilirubin Confirm Urine Urobilinogen (<2.0) mg/dL Ur Leukocyte Esterase (Negative) Urine WBC (0-5) /hpf Urine Bacteria (None) /hpf Hyaline Casts (0-2) /lpf Urine Mucus (None) /hpf Urine Opiates Screen (NotDetected) Ur Oxycodone Screen (NotDetected) Urine Methadone Screen (NotDetected) Ur Barbiturates Screen (NotDetected) U Tricyclic Antidepress (NotDetected) Ur Phencyclidine Scrn (NotDetected) Ur Amphetamines Screen (NotDetected) U Methamphetamines Scrn (NotDetected) U Benzodiazepines Scrn (NotDetected) Urine Cocaine Screen (NotDetected) U Marijuana (THC) Screen (NotDetected) Serum Alcohol <10 mg/dL 11/16/24 Range/Units 17:46 WBC (4.50-10.00) 10*3/uL RBC (4.40-5.60) 10*6/uL Hgb (13.0-17.0) g/dL Hct (39.6-50.0) % MCV (80.0-97.0) fL MCH (27.0-32.0) pg MCHC (32.0-37.0) g/dL Plt Count (140-440) 10*3/uL MPV (9.5-12.2) fL Immature Gran % (Auto) % Neutrophils % % Lymphocytes % % Monocytes % % Eosinophils % % Basophils % % Immature Gran # (0.00-0.04) 10*3/uL Neutrophils # (1.80-7.70) 10*3/uL Lymphocytes # (0.90-5.00) 10*3/uL Monocytes # (0.20-1.00) 10*3/uL Eosinophils # (0.04-0.35) 10*3/uL Basophils # (0.00-0.10) 10*3/uL Manual Slide Review Rouleaux PT (10.0-12.5) sec INR (<1.2) APTT (22.0-30.0) sec Sodium 117 L* (137-145) mmol/L Potassium 3.7 (3.5-5.1) mmol/L Chloride 88 L (98-107) mmol/L Carbon Dioxide 24 (22-30) mmol/L Anion Gap 5 mmol/L BUN 21 H (9-20) mg/dL Creatinine 0.83 (0.66-1.25) mg/dL Est GFR (CKD-EPI)AfAm >90 (>60 ml/min/1.73 sqM) Est GFR (CKD-EPI)NonAf >90 (>60 ml/min/1.73 sqM) Glucose 90 (74-99) mg/dL Calcium 8.0 L (8.4-10.2) mg/dL Total Bilirubin (0.2-1.3) mg/dL AST (17-59) U/L ALT (4-49) U/L Alkaline Phosphatase (38-126) U/L Troponin I (0.000-0.034) ng/mL Total Protein (6.3-8.2) g/dL Albumin (3.5-5.0) g/dL Amylase (30-110) U/L Lipase (23-300) U/L TSH (0.465-4.680) mIU/L Urine Color Urine Appearance (Clear) Urine pH (5.0-8.0) Ur Specific [place] (1.001-1.035) Urine Protein (Negative) Ur Protein Confirm Urine Glucose (UA) (Negative) Urine Ketones (Negative) Urine Blood (Negative) Urine Nitrite (Negative) Urine Bilirubin (Negative) Ur Bilirubin Confirm Urine Urobilinogen (<2.0) mg/dL Ur Leukocyte Esterase (Negative) Urine WBC (0-5) /hpf Urine Bacteria (None) /hpf Hyaline Casts (0-2) /lpf Urine Mucus (None) /hpf Urine Opiates Screen (NotDetected) Ur Oxycodone Screen (NotDetected) Urine Methadone Screen (NotDetected) Ur Barbiturates Screen (NotDetected) U Tricyclic Antidepress (NotDetected) Ur Phencyclidine Scrn (NotDetected) Ur Amphetamines Screen (NotDetected) U Methamphetamines Scrn (NotDetected) U Benzodiazepines Scrn (NotDetected) Urine Cocaine Screen (NotDetected) U Marijuana (THC) Screen (NotDetected) Serum Alcohol mg/dL - EKG Data -: EKG Interpreted by Me EKG Comments: 12-lead Electrocardiogram Interpretation Note EKG was reviewed and interpreted by myself. 12-lead ECG performed at 1624 is interpreted by me as revealing normal sinus rhythm at a rate of 79 beats per minute. [place] is normal. MA interval is 165 ms, QRS duration is 132 ms, QTc is [address] ms. There were no ST or T wave abnormalities to suggest myocardial ischemia or injury. R wave progression across the precordium was satisfactory. By my interpretation this EKG is non-diagnostic for acute ischemia. Disposition Clinical Impression: Hyponatremia, Homicidal ideations Disposition: ADMITTED IP TO THIS HOSP Condition: Stable Referrals: Maria D Escamilla MD [Primary Care Provider] - 1-2 days Time of Disposition: 18:40
[2024-11-16] MEDS: ACETAMINOPHEN TAB 325 MG TAB PO PRN (20:20)
[2024-11-16] MEDS ORDERED: LORazepam 0.5 MG TAB PO PRN (21:22)
[2024-11-16] MEDS ORDERED: LORazepam 1 MG TAB PO PRN (21:22)
[2024-11-16] MEDS: LORazepam 1 MG TAB PO STA (21:35)
[2024-11-16] MEDS: SODIUM CHLORIDE TAB 1 GM TAB PO STA (23:21)
[2024-11-16] MEDS: NICOTINE 21MG/24HR PATCH TRANSDERM SCH (23:38)
[2024-11-17] MEDS: LORazepam 1 MG/0.5 ML VIAL IV PRN ×3 (00:15→09:32)
[2024-11-17] MEDS: LORazepam 1 MG/0.5 ML VIAL IV STA (00:34)
[2024-11-17 04:29] VITALS: TEMP 97.9
[2024-11-17] MEDS: HALOPERIDOL LACTATE 5 MG/ML 1 ML VIAL IM PRN (09:51)
[2024-11-17] MEDS ORDERED: ZIPRASIDONE 20 MG VIAL IM STA (10:44)
[2024-11-17 13:05] LABS: Basophils # (A) 0.01 10*3/uL (0.00-0.10); Basophils % (A) 0.1 %; Eosinophils # (A) 0.09 10*3/uL (0.04-0.35); Eosinophils % (A) 1.1 %; HCT 40.0 % (39.6-50.0); HGB 14.7 g/dL (13.0-17.0); Lymphocytes # (A) 2.49 10*3/uL (0.90-5.00); Lymphocytes % (A) 29.7 %; MCH 32.2 pg (27.0-32.0); MCHC 36.8 g/dL (32.0-37.0); MCV 87.7 fL (80.0-97.0); Monocytes # (A) 0.99 10*3/uL (0.20-1.00); Monocytes % (A) 11.8 %; Neutrophils # (A) 4.76 10*3/uL (1.80-7.70); Neutrophils % (A) 56.9 %; Platelet Count 259 10*3/uL (140-440); RBC 4.56 10*6/uL (4.40-5.60); RDW 12.2 % (11.5-14.5); WBC 8.37 10*3/uL (4.50-10.00)
[2024-11-17 13:32] LABS: ALT 18 U/L (4-49); AST 23 U/L (17-59); African American GFR (CKD) >90 (>60 ml/min/1.73 sqM); Albumin 3.9 g/dL (3.5-5.0); Alkaline Phosphatase 52 U/L (38-126); Anion Gap 9 mmol/L; Blood Urea Nitrogen 12 mg/dL (9-20); Calcium 8.6 mg/dL (8.4-10.2); Carbon Dioxide 24 mmol/L (22-30); Chloride 98 mmol/L (98-107); Glucose 70 mg/dL (74-99); Non-African American GFR(CKD) >90 (>60 ml/min/1.73 sqM); Potassium 4.2 mmol/L (3.5-5.1); Sodium 131 mmol/L (137-145); Total Protein 6.5 g/dL (6.3-8.2)
--- NOTE | 2024-11-17 14:12 | P.CN ---
Psychiatric Consult - . Consult date: 11/17/24 Consult:: 11/17/24 14:06 IDENTIFYING DATA: This patient is a 34-year-old male, unemployed, living independently REASON FOR REFERRAL: Psychiatry was consulted for HI, petition HISTORY OF PRESENT ILLNESS: The patient presented to the hospital with homicidal ideations after making statements on Facebook. Patient reportedly had not been sleeping for several days. Patient had to receive several as needed medications for agitation, threatening staff with intrusiveness. Sodium improved from 117- 131, TSH was low at 0.449. Patient's father did fill out a petition that states, "patient gets upset if he does not get what he wants, Facebook posts about killing his family. Refused to take medications." Patient was somnolent however was arousable with security present at bedside given his agitation. Patient was not forthcoming with any information, would not elaborate on the Facebook post. Patient initially was not forthcoming about alcohol use however did admit to drinking a couple of beers per day. He admits to smoking cannabis 2-3 times a day. At this time patient denies any suicidal or homicidal ideations, intent or plan. Patient denies any auditory, visual hallucinations and denies any paranoia or delusions. PAST PSYCHIATRIC HISTORY: Patient has a history of bipolar disorder. Patient denies being on any psychiatric medications. Patient was last hospitalized at this facility in 03/2023. Patient denies any psychiatric outpatient follow-up. Patient denies any history of suicide attempts in the past. PAST MEDICAL HISTORY: Asthma, hypertension. ALLERGIES: as per EMR. CHEMICAL DEPENDENCY HISTORY: as per HPI. FAMILY PSYCHIATRIC/SUBSTANCE USE HISTORY: Unknown SOCIAL HISTORY: Patient reports living independently, is unemployed and completed high school. MENTAL STATUS EXAM: General Appearance: Patient appears to be stated age is on the left but largely cooperative. Patient appears to have poor hygiene and grooming wearing hospital gown with poor eye contact. Behavior: Patient is calmly lying in bed without any agitated behavior. Speech: Patient's speech is fluent and nonpressured. Mood/Affect: Patient reports their mood is "all right", affect is congruent Suicidality/Homicidality: Patient denies having any suicidal or homicidal ideation intent or plan. Perceptions: Patient denies any visual hallucinations and denies any auditory hallucinations Though content/process: There is no evidence of any delusional thought content and thought process is linear and goal-directed. Memory and concentration: AOX3, grossly intact for the purposes of this session. Can spell "WORLD" backwards Judgment and insight: Poor IMPRESSIONS: History of bipolar disorder Alcohol use disorder Cannabis use disorder PLAN: -At this time patient DOES meet criteria for inpatient psychiatric admission. -Would recommend the following medication changes/additions: Decrease frequency of Haldol 5 mg IM to every 4 Hours as needed for acute safety concerns, continue Ativan as needed for agitation as well -CIWA protocol with PRN Ativan for alcohol withdrawal. Continue to monitor vital signs. -Continue 1:1 sitter for safety -Cannot leave AMA at this time. Patient will need a petition and certification if attempting to leave AMA. -Trench Digger Helper spoke with patient about substance abuse and the harmful effects on medical and mental health, patient verbally understood and agreed. -When medically stable, patient is eligible for transfer to a psych bed when available. -Communicated plan to patient's nurse -Will continue to follow along as needed -Please contact with any questions. 11/17/24 14:09
[2024-11-17] MEDS: DEXTROSE 5% IN WATER 1,000 ML IV SCH (16:43)
--- NOTE | 2024-11-17 17:30 | P.NPCON ---
History of Present Illness - Reason for Consult hyponatremia - History of Present Illness Patient is a 34-year-old male with history of bipolar disorder who is admitted to the hospital due to multiple homicidal statements made on Facebook. Patient's father called police and patient is brought to the hospital for further evaluation. He does have a history of bipolar disorder. Patient has been very aggressive and verbally abusive to multiple staff members in the hospital. He has been throwing things at the staff. There is a sitter present outside the room along with a owner manager. Patient apparently took a large amount of marijuana Gummies so that he could sleep properly. Labs in the ER showed sodium of 117. Patient was started on normal saline which he received overnight. Patient has pulled out his IV this twice this morning and he did not allow repeat labs to be drawn. Blood pressure was low on initial admission with systolic in the 90s. Sodium level was finally drawn later this morning and was noted to be 131. Patient had already been off of saline since this morning. No history of nausea vomiting or abdominal pain. Patient is waiting to be evaluated by psychiatry. Past Medical History Past Medical History: Asthma, Hypertension Additional Past Medical History / Comment(s): Slipped discs L1-L5 History of Any Multi-Drug Resistant Organisms: None Reported Past Surgical History: Tonsillectomy Past Anesthesia/Blood Transfusion Reactions: No Reported Reaction Past Psychological History: Anxiety, Depression Smoking Status: Current every day smoker Past Alcohol Use History: Abuse, Daily Past Drug Use History: Marijuana, Methamphetamine - Past Family History Mother History Unknown: Yes Additional Family Medical History / Comment(s): Patient did not want to disclose information on parents Father History Unknown: Yes Additional Family Medical History / Comment(s): Patient did not want to disclose information on parents Medications and Allergies Home Medications Medication Instructions Recorded Confirmed Type lisinopriL 40 mg PO DAILY 11/16/24 11/16/24 History Allergies Allergy/AdvReac Type Severity Reaction Status Date / Time No Known Allergies Allergy Verified 11/16/24 17:20 Physical Exam Vitals: Vital Signs Temp Pulse Pulse Resp BP BP Pulse Ox 11/17/24 12:00 17 11/17/24 04:00 97.9 F 63 18 102/60 96 11/17/24 00:00 65 18 114/62 95 11/16/24 21:00 98.2 F 69 18 100/57 96 11/16/24 20:13 98.1 F 71 17 104/67 96 11/16/24 19:27 72 17 120/71 98 11/16/24 18:17 81 16 91/58 98 Intake and Output 11/17/24 11/17/24 11/17/24 06:59 14:59 22:59 Intake Total 540 Balance 540 Intake: Oral 540 Other: # Voids 1 Weight 84 kg Patient is sleeping as he has received Ativan. He is arousable. Does not communicate much. No edema noted in his legs. He is moving all 4 extremities. Lungs and heart are not examined as patient has been quite aggressive. Results - Lab Results Most recent lab results Calcium 8.6 mg/dL (8.4-10.2) 11/17/24 12:45 11/17/24 12:45 11/17/24 12:45 Assessment and Plan Assessment: 1. Hypovolemic hyponatremia, improved with normal saline 2. History of bipolar disorder, no medications noted on med list 3. Aggressive behavior with underlying psychiatric disorder. Plan: Continue off of normal saline Add low-dose D5W and repeat labs in 6 hours. If patient refuses lab draws I will discontinue D5W infusion. Further evaluation as per psych including medications. Thank you for the consultation. We will continue to follow the patient with you during his hospitalization.
--- NOTE | 2024-11-17 18:29 | P.HPIM ---
History of Present Illness H&P Date: 11/17/24 Patient is a 34-year-old male with a history of hypertension and bipolar disorder admitted to the hospital due to homicidal statements made on Facebook. His father called the police and was brought to the hospital for further evaluation. He states that he has not been sleeping well because he has been anxious, had a racing mind. He also reports that he has been drinking 12 cans of white claw daily and consuming marijuana gummies to help him sleep. He has also been very aggressive and verbally abusive to multiple staff members in the hospital. Sitter at bedside as well as security during the time of this interview. Patient is a poor historian as he does not want to participate in this interview. He was admitted to the medicine floor due to hyponatremia of 117. He was started on IV 0.9% saline and ripped his IV out this morning, declining repeat labs to be drawn. Patient denies fever/chills, nausea/vomiting, difficulty breathing, chest pain, abdominal pain. Initial vitals: T 97.9 F, BP 102/60, ME 63 bpm, RR 18, 96% on room air Initial labs: WBC 10.66, hemoglobin 13.9, hematocrit 36.2, platelets 294, sodium 117, potassium 3.6, chloride 85, CO2 25, creatinine 0.91, glucose 100, TSH 0.449 Initial EKG: Normal sinus rhythm, ventricular rate 79 bpm, QTc 417 ms, no ST segment changes Initial chest x-ray: No acute cardiopulmonary disease/process Initial brain CT: No acute intracranial process, extensive motion artifact Initial gallbladder ultrasound: No evidence for acute process, difficult exam ED documentation reviewed. Review of systems: Pertinent positives and negatives as discussed in HPI, a complete review of systems was performed and all other systems are negative. Physical examination: Vital signs reviewed General: Nontoxic, no distress, appears stated age, well-appearing Derm: Warm, dry, intact, no cyanosis Head: Atraumatic, normocephalic, symmetric Eyes: EOMI, anicteric sclera Ears: Normal appearing, no external lesions, hearing intact Nose: Normal appearing, no external lesions Mouth: No lip lesions Cardiovascular: S1-S2 regular, no murmur, no pedal edema Lungs: CTA bilateral, no wheezes, no rhonchi, no rales, no accessory muscle use Abdominal: Soft, non-tender to palpation, bowel sounds present Extremities: Muscle strength 5/5 in all extremities Neuro: Alert, oriented x 3, gross neurological examination did not reveal any focal deficits. Cranial nerves II to XII grossly intact. Psych: Appropriate affect and mood Assessment and Plan: Patient is a 34-year-old male with history of hypertension and bipolar disorder admitted to the hospital for hypovolemic hyponatremia. Active #. Hypovolemic hyponatremia Initial sodium 117, repeat 131 Discontinue normal saline, add D5W per nephrology Obtain repeat BMP Nephrology on consult #. Likely alcohol use disorder [facility] protocol #. History of bipolar disorder #. Aggressive behavior Haldol IM as needed for agitation or acute psychosis Sitter at bedside Psychiatry on consult Chronic #. Nicotine dependence Nicotine 21 mg patch daily DVT prophylaxis: SCDs GI prophylaxis: Not indicated The patient is admitted with an anticipated less than 2 midnight stay for evaluation of hypovolemic hyponatremia. CODE STATUS: Full code Discussed with: Dr. Whitaker Anticipated discharge place: Pending clinical course Attestation I have seen and examined this patient with my resident , discussed the same with the resident/BEN, and agree with the dictator's assessment and plan as written Dr. Yoel whitaker Past Medical History Past Medical History: Asthma, Hypertension Additional Past Medical History / Comment(s): Slipped discs L1-L5 History of Any Multi-Drug Resistant Organisms: None Reported Past Surgical History: Tonsillectomy Past Anesthesia/Blood Transfusion Reactions: No Reported Reaction Past Psychological History: Anxiety, Depression Smoking Status: Current every day smoker Past Alcohol Use History: Abuse, Daily Past Drug Use History: Marijuana, Methamphetamine - Past Family History Mother History Unknown: Yes Additional Family Medical History / Comment(s): Patient did not want to disclose information on parents Father History Unknown: Yes Additional Family Medical History / Comment(s): Patient did not want to disclose information on parents Medications and Allergies Home Medications Medication Instructions Recorded Confirmed Type lisinopriL 40 mg PO DAILY 11/16/24 11/16/24 History Allergies Allergy/AdvReac Type Severity Reaction Status Date / Time No Known Allergies Allergy Verified 11/16/24 17:20 Physical Exam Vitals: Vital Signs Temp Pulse Pulse Resp BP BP Pulse Ox 11/17/24 04:00 97.9 F 63 18 102/60 96 11/17/24 00:00 65 18 114/62 95 11/16/24 21:00 98.2 F 69 18 100/57 96 11/16/24 20:13 98.1 F 71 17 104/67 96 11/16/24 19:27 72 17 120/71 98 11/16/24 18:17 81 16 91/58 98 Intake and Output 11/17/24 11/17/24 11/17/24 06:59 14:59 22:59 Intake Total 540 Balance 540 Intake: Oral 540 Other: # Voids 1 Weight 84 kg Results CBC & Chem 7: 11/17/24 12:45 11/18/24 06:25 Labs: Abnormal Lab Results - Last 24 Hours (Table) 11/16/24 11/16/24 11/16/24 Range/Units 16:03 16:03 16:18 WBC 10.66 H (4.50-10.00) 10*3/uL RBC 4.24 L (4.40-5.60) 10*6/uL Hct 36.2 L (39.6-50.0) % MCH 32.8 H (27.0-32.0) pg MCHC 38.4 H (32.0-37.0) g/dL MPV 8.6 L (9.5-12.2) fL Immature Gran # 0.05 H (0.00-0.04) 10*3/uL Monocytes # 1.16 H (0.20-1.00) 10*3/uL Sodium (137-145) mmol/L Chloride (98-107) mmol/L BUN (9-20) mg/dL Glucose (74-99) mg/dL Calcium (8.4-10.2) mg/dL TSH (0.465-4.680) mIU/L Urine Bacteria Rare H (None) /hpf Hyaline Casts 5 H (0-2) /lpf Urine Mucus Rare H (None) /hpf U Marijuana (THC) Screen Detected H (NotDetected) 11/16/24 11/16/24 11/17/24 Range/Units 16:18 17:46 12:45 WBC (4.50-10.00) 10*3/uL RBC (4.40-5.60) 10*6/uL Hct (39.6-50.0) % MCH 32.2 H (27.0-32.0) pg MCHC (32.0-37.0) g/dL MPV 8.4 L (9.5-12.2) fL Immature Gran # (0.00-0.04) 10*3/uL Monocytes # (0.20-1.00) 10*3/uL Sodium 117 L* 117 L* (137-145) mmol/L Chloride 85 L 88 L (98-107) mmol/L BUN 22 H 21 H (9-20) mg/dL Glucose 100 H (74-99) mg/dL Calcium 8.0 L (8.4-10.2) mg/dL TSH 0.449 L (0.465-4.680) mIU/L Urine Bacteria (None) /hpf Hyaline Casts (0-2) /lpf Urine Mucus (None) /hpf U Marijuana (THC) Screen (NotDetected) 11/17/24 Range/Units 12:45 WBC (4.50-10.00) 10*3/uL RBC (4.40-5.60) 10*6/uL Hct (39.6-50.0) % MCH (27.0-32.0) pg MCHC (32.0-37.0) g/dL MPV (9.5-12.2) fL Immature Gran # (0.00-0.04) 10*3/uL Monocytes # (0.20-1.00) 10*3/uL Sodium 131 L (137-145) mmol/L Chloride (98-107) mmol/L BUN (9-20) mg/dL Glucose 70 L (74-99) mg/dL Calcium (8.4-10.2) mg/dL TSH (0.465-4.680) mIU/L Urine Bacteria (None) /hpf Hyaline Casts (0-2) /lpf Urine Mucus (None) /hpf U Marijuana (THC) Screen (NotDetected) Thrombosis Risk Factor Assmnt - Choose All That Apply Any of the Below Risk Factors Present?: Yes Each Factor Represents 1 point: Obesity (BMI >25) Other Risk Factors: No Thrombosis Risk Factor Assessment Total Risk Factor Score: 1 Thrombosis Risk Factor Assessment Level: Low Risk
[2024-11-17 21:30] LABS: Potassium 4.1 mmol/L (3.5-5.1)
[2024-11-17 22:33] LABS: African American GFR (CKD) >90 (>60 ml/min/1.73 sqM); Anion Gap 7 mmol/L; Blood Urea Nitrogen 11 mg/dL (9-20); Calcium 8.7 mg/dL (8.4-10.2); Carbon Dioxide 27 mmol/L (22-30); Chloride 96 mmol/L (98-107); Glucose 102 mg/dL (74-99); Non-African American GFR(CKD) >90 (>60 ml/min/1.73 sqM); Sodium 130 mmol/L (137-145)
[2024-11-18] MEDS: DEXTROSE 5% IN WATER 1,000 ML IV SCH (00:11)
[2024-11-18 00:25] VITALS: RESP 18
[2024-11-18] MEDS: HALOPERIDOL LACTATE 5 MG/ML 1 ML VIAL IM PRN (03:17)
[2024-11-18 08:07] LABS: African American GFR (CKD) >90 (>60 ml/min/1.73 sqM); Anion Gap 9 mmol/L; Blood Urea Nitrogen 9 mg/dL (9-20); Calcium 8.9 mg/dL (8.4-10.2); Carbon Dioxide 28 mmol/L (22-30); Chloride 97 mmol/L (98-107); Glucose 87 mg/dL (74-99); Non-African American GFR(CKD) >90 (>60 ml/min/1.73 sqM); Potassium 4.5 mmol/L (3.5-5.1); Sodium 134 mmol/L (137-145)
--- NOTE | 2024-11-18 10:55 | P.PN ---
Subjective Patient is seen in follow-up for hyponatremia. Resting in bed. Currently on D5W at 50 cc an hour. Sodium level 134 today. Vital signs are stable. General: No acute distress. HEENT: Head exam is unremarkable. LUNGS: No audible rhonchi or wheezes. HEART: Rate and Rhythm are regular. ABDOMEN: No distention. EXTREMITITES: No edema. Objective - Vital Signs Vital signs: Vital Signs Temp 97.9 F 11/17/24 04:00 Pulse 69 11/18/24 04:00 Resp 18 11/18/24 04:00 BP 107/63 11/18/24 04:00 Pulse Ox 98 11/18/24 04:00 FiO2 Intake & Output 11/17/24 11/18/24 11/18/24 18:59 06:59 18:59 Intake Total 540 540 Balance 540 540 Weight 105.8 kg Intake: Oral 540 540 Other: # Voids 3 - Labs CBC & Chem 7: 11/17/24 12:45 11/18/24 06:25 Labs: Abnormal Lab Results - Last 24 Hours (Table) 11/17/24 11/17/24 11/17/24 Range/Units 12:45 12:45 13:05 MCH 32.2 H (27.0-32.0) pg MPV 8.4 L (9.5-12.2) fL Sodium 131 L (137-145) mmol/L Chloride (98-107) mmol/L Glucose 70 L (74-99) mg/dL Ur Random Sodium <20 L (40-220) mmol/L 11/17/24 11/18/24 Range/Units 20:52 06:25 MCH (27.0-32.0) pg MPV (9.5-12.2) fL Sodium 130 L 134 L (137-145) mmol/L Chloride 96 L 97 L (98-107) mmol/L Glucose 102 H (74-99) mg/dL Ur Random Sodium (40-220) mmol/L Assessment and Plan Plan: Assessment: 1. Hypovolemic hyponatremia improved with normal saline. 2. History of bipolar disorder. Plan: Maintain D5W. Increase rate slightly to 80 cc an hour. Repeat sodium level this afternoon. If sodium level stable, can Hep-Lock IV fluids. Anticipate discharge soon.
[2024-11-18 13:46] VITALS: BP 127/79; PULSE 74
--- NOTE | 2024-11-18 15:23 | P.DS ---
Providers Date of admission: 11/16/24 18:41 Expected date of discharge: 11/18/24 Attending physician: Darryn Stone Consults: 11/16/24 18:38 Consult Physician Routine Consulting Provider: Rose Billingsley Consult Reason/Comments: hyponatremia Do you want consulting provider notified?: Yes 11/16/24 18:39 Consult Physician Routine Consulting Provider: Psychiatry - [facility] Consult Reason/Comments: homicidal ideations, petition Do you want consulting provider notified?: Yes Primary care physician: Maria D Escamilla MD Hospital Course: Discharge diagnoses; #. Hypovolemic hyponatremia Resolved #. Likely alcohol use disorder [facility] protocol #. History of bipolar disorder #. Aggressive behavior Haldol IM as needed for agitation or acute psychosis Sitter at bedside Psychiatry evaluated, recommended inpatient psych admission, patient is medically stable for discharge to inpatient psych psychiatry Chronic #. Nicotine dependence Nicotine 21 mg patch daily Hospital course; Patient is a 34-year-old male with a history of hypertension and bipolar disorder admitted to the hospital due to homicidal statements made on Facebook. His father called the police and was brought to the hospital for further evaluation. He states that he has not been sleeping well because he has been anxious, had a racing mind. He also reports that he has been drinking 12 cans o f white claw daily and consuming marijuana gummies to help him sleep. He has also been very aggressive and verbally abusive to multiple staff members in the hospital. Sitter at bedside as well as security during the time of this interview. Patient is a poor historian as he does not want to participate in this interview. He was admitted to the medicine floor due to hyponatremia of 117. He was started on IV 0.9% saline and ripped his IV out this morning, declining repeat labs to be drawn. Patient denies fever/chills, nausea/vomiting, difficulty breathing, chest pain, abdominal pain. Patient was evaluated by nephrology and by psychiatry during this hospital stay. Patient sodium level improved. Psychiatry evaluated they recommended inpatient psych admission once cleared by nephrology. Last sodium level was 134. Patient cleared for discharge to inpatient psychiatry PHYSICAL EXAMINATION: GENERAL: The patient is alert, agitated HEENT: Pupils are round and equally reacting to light. EOMI. No scleral icterus. No conjunctival pallor. Normocephalic, atraumatic. No pharyngeal erythema. No thyromegaly. CARDIOVASCULAR: S1 and S2 present. No murmurs, rubs, or gallops. PULMONARY: Chest is clear to auscultation, no wheezing or crackles. ABDOMEN: Soft, nontender, nondistended, normoactive bowel sounds. No palpable organomegaly. MUSCULOSKELETAL: No joint swelling or deformity. EXTREMITIES: No cyanosis, clubbing, or pedal edema. NEUROLOGICAL: Gross neurological examination did not reveal any focal deficits. SKIN: No rashes. Dictation was produced using [employer] dictation software. please excuse any grammatical, word or spelling errors. Patient Condition at Discharge: Fair Plan - Discharge Summary Discharge Rx Participant: No New Discharge Prescriptions: Continue lisinopriL 40 mg PO DAILY Discharge Medication List lisinopriL 40 mg PO DAILY 11/16/24 [History] Follow up Appointment(s)/Referral(s): Maria D Escamilla MD [Primary Care Provider] - 1-2 days Discharge Disposition: TRANSFER TO PSYCH HOSP/UNIT
== END 2024-11-18 19:46 | DRG 426 ==
LOC: EC 15:15 → 3SCARD 18:41
PROVIDERS: ADMIT Internal Medicine; ATTEND Internal Medicine
DX: E87.1 Hypo-osmolality and hyponatremia (principal); E86.1 Hypovolemia; F10.10 Alcohol abuse, uncomplicated; F12.10 Cannabis abuse, uncomplicated; F17.200 Nicotine dependence, unspecified, uncomplicated; F31.9 Bipolar disorder, unspecified; F41.9 Anxiety disorder, unspecified; R45.1 Restlessness and agitation; I10 Essential (primary) hypertension; J45.909 Unspecified asthma, uncomplicated; R45.850 Homicidal ideations; Z53.20 Procedure and treatment not carried out because of patient's decision for unspecified reasons; Z79.899 Other long term (current) drug therapy; Z56.0 Unemployment, unspecified
CPT/HCPCS: 36415; 70450; 71046; 76705; 80048; 80053; 80306; 80320; 81003; 82075; 82150; 83690; 83935; 84295; 84300; 84443; 84484; 85025; 85610; 85730; 87635; 93005; 96361; 96374; 96375; 99285